=== PATIENT | male | born 1975 | race Two or more races ===

== ENCOUNTER 2017-04-21 22:09 | Emergency (ER) | payer MEDICAID, OTHER ==
[~2017-04-21] VITALS: Ht 170.2 cm; Wt 86.2 kg
[2017-04-21 22:14] VITALS: BP 150/107
== END 2017-04-22 04:20 | disposition home or self-care (01) ==
LOC: ER 22:09
DX: S91.311A Laceration without foreign body, right foot, initial encounter (principal); Z90.49 Acquired absence of other specified parts of digestive tract; W54.0XXA Bitten by dog, initial encounter; Y93.89 Activity, other specified; Y99.8 Other external cause status; Y92.89 Other specified places as the place of occurrence of the external cause
CPT/HCPCS: 12002

== ENCOUNTER 2017-05-03 17:31 | Emergency (ER) | payer OTHER ==
[~2017-05-03] VITALS: Ht 170.2 cm; Wt 86.2 kg
[2017-05-03 18:50] VITALS: BP 126/88
== END 2017-05-03 19:01 | disposition home or self-care (01) ==
LOC: ER 17:39
DX: S91.311D Laceration without foreign body, right foot, subsequent encounter (principal); Z48.02 Encounter for removal of sutures; Z90.49 Acquired absence of other specified parts of digestive tract

== ENCOUNTER 2020-06-25 08:54 | Emergency (ER) | payer OTHER ==
[~2020-06-25] VITALS: Ht 170.2 cm; Wt 93.0 kg
[2020-06-25 09:11] VITALS: BP 152/91
== END 2020-06-25 10:29 | disposition home or self-care (01) ==
LOC: ER 08:54
DX: S39.012A Strain of muscle, fascia and tendon of lower back, initial encounter (principal); R07.81 Pleurodynia; X58.XXXA Exposure to other specified factors, initial encounter; Y93.89 Activity, other specified; Y92.89 Other specified places as the place of occurrence of the external cause; Y99.8 Other external cause status
CPT/HCPCS: 71101

== ENCOUNTER 2020-08-07 10:00 | Emergency (ER) | payer OTHER ==
[~2020-08-07] VITALS: Ht 170.2 cm; Wt 93.0 kg
[2020-08-07] MEDS ORDERED: IBUPROFEN 800 MG TAB PO ONE (10:45)
[2020-08-07 11:47] VITALS: BP 142/97
== END 2020-08-07 12:52 | disposition home or self-care (01) ==
LOC: ER 10:00
DX: S92.421A Displaced fracture of distal phalanx of right great toe, initial encounter for closed fracture (principal); X58.XXXA Exposure to other specified factors, initial encounter; Y93.89 Activity, other specified; Y92.89 Other specified places as the place of occurrence of the external cause; Y99.8 Other external cause status
CPT/HCPCS: 73630

== ENCOUNTER 2023-10-30 06:31 | Emergency (ER) | payer MEDICAID, OTHER ==
[~2023-10-30] VITALS: Ht 170.2 cm; Wt 93.5 kg
[2023-10-30 07:40] VITALS: TEMP 98.3
[2023-10-30] MEDS: LORazepam 2MG/ML-1ML VIAL IM ONE (07:48)
[2023-10-30 07:52] VITALS: PULSE 72; RESP 16; O2SAT 98
[2023-10-30 08:56] VITALS: BP 145/93; PULSE 67; RESP 18; O2SAT 93
== END 2023-10-30 08:58 | disposition home or self-care (01) ==
LOC: ER 06:31
DX: I10 Essential (primary) hypertension (principal); Z98.890 Other specified postprocedural states
CPT/HCPCS: 96372; 99283; J2060

== ENCOUNTER 2024-02-13 07:08 | Inpatient (IN) | payer MEDICAID ==
[~2024-02-13] VITALS: Ht 167.6 cm; Wt 101.5 kg
[2024-02-13 07:39] LABS: Urine Bacteria None Seen /hpf (None Seen)
[2024-02-13 07:57] LABS: Urine Blood TRACE /uL (Negative); Urine Clarity Turbid (Clear); Urine Color Dark-Orange (Yellow); Urine Mucus FEW (None Seen); Urine Protein, UAD 1+ (Negative); Urine Specific Gravity 1.025 (1.001-1.035); Urine Urobilinogen 6 mg/dL (Negative); Urine WBC 6 /hpf (0 - 3)
--- NOTE | 2024-02-13 08:38 | DVH ---
XY CHEST TWO VIEWS ROUTINE CLINICAL HISTORY: epigastric pain COMPARISON: None TECHNIQUE: Frontal and lateral view of the chest was obtained FINDINGS: Lines and Tubes: None Lungs: No focal consolidation. Pleura: No effusion. No pneumothorax. Cardiomediastinal contours: Unremarkable Bones: No acute osseous abnormality. IMPRESSION: 1. No acute cardiopulmonary disease.
[2024-02-13] MEDS: SODIUM CHLORIDE 0.9% 1,000 ML IV ONE ×2 (08:43→19:10)
--- NOTE | 2024-02-13 08:43 | ED.PDOC ---
GI ASSESSMENT HPI Comments A 48 year old male presents to the ED with a chief complaint of abdominal pain onset 2 days. Patient states he began experiencing diffused abdominal 2 days ago, nausea, last bowel movement was 2 days ago. Patient noticed his eyes were turning yellow 2 days ago. Patient drink ETOH daily, last drink was yesterday. Denies any past medical history as well as fever, vomiting, diarrhea, chest pain, shortness of breath. No other symptoms or modifying factors present at this time. Chief Complaint: Abdominal Pain Time Seen by MD: 08:24 Primary Care Provider: LAURITA Reviewed Notes: Medications, Allergies Allergies: Coded Allergies: NO KNOWN ALLERGIES (Unverified , 06/22/14) Information Source: Patient Mode of Arrival: Ambulatory Timing: Days Duration: Since onset Prehospital treatment: None Severity: Moderate Recent: Ingestion of ETOH Pain Location: Diffuse Associated sign and symptoms: Nausea, Abdominal Pain Past Medical History PAST MEDICAL HISTORY: Denies Surgical History: Cholecystectomy Family History Family History: No family hx of DM Social History Smoker: Non-Smoker Alcohol: Heavy Drugs: Denies Drug Use Lives In: Home Constitutional: denies: chills, diaphoresis, fatigue, fever, malaise, sweats, weakness, others EENTM: denies: blurred vision, double vision, ear bleeding, ear discharge, ear drainage, ear pain, ear ringing, eye pain, eye redness, hearing loss, mouth pain, mouth swelling, nasal discharge, nose bleeding, nose congestion, nose pain, photophobia, tearing, throat pain, throat swelling, voice changes, others Respiratory: denies: cough, hemoptysis, orthopnea, SOB at rest, shortness of breath, SOB with excertion, stridor, wheezing, others Cardiovascular: denies: chest pain, dizzy spells, diaphoresis, Dyspnea on exertion, edema, irregular heart beat, left arm pain, lightheadedness, palpitations, PND, syncope, others Gastrointestinal: reports: abdominal pain, constipated, nausea; denies: abdomen distended, blood streaked bowels, diarrhea, dysphagia, difficulty swallowing, hematemesis, melena, poor appetite, poor fluid intake, rectal bleeding, rectal pain, vomiting, others Genitourinary: denies: burning, dysuria, flank pain, frequency, hematuria, incontinence, penile discharge, penile sore, pain, testicle pain, testicle swelling, urgency, others Neurological: denies: dizziness, fainting, headache, left sided numbness, left sided weakness, numbness, paresthesia, pre-existing deficit, right sided numbness, right sided weakness, seizure, speech problems, tingling, tremors, weakness, others Musculoskeletal: denies: back pain, gout, joint pain, joint swelling, muscle pain, muscle stiffness, neck pain, others Integumetry: denies: bruises, change in color, change in hair/nails, dryness, laceration, lesions, lumps, rash, wounds, others Hematologic/Lymphatic: denies: anemia, blood clots, easy bleeding, easy bruising, swollen glands, others Endocrine: denies: excessive hunger, excessive sweating, excessive thirst, excessive urination, flushing, intolerance to cold, intolerance to heat, unexplained weight gain, unexplained weight loss, others Psychiatric: denies: anxiety, bipolar disorder, depression, hopeless, panic disorder, schizophrenia, sleepless, suicidal, others All Other Systems: Reviewed and Negative Physical Exam General Appearance: No Apparent Distress, Normal HEENT: Normal ENT Inspection, Pharynx Normal, TMs Normal Neck: Full Range of Motion, Non-Tender, Normal, Normal Inspection Respiratory: Chest Non-Tender, Lungs Clear, No Accessory Muscle Use, No Respiratory Distress, Normal Breath Sounds Cardiovascular: No Edema, No JVD, No Murmur, No Gallop, Normal Peripheral Pulses, Regular Rate/Rhythm Breast Exam: Deferred Gastrointestinal: Diffuse, No Organomegaly, No Pulsatile Mass, Tenderness Genitalia: Deferred Pelvic: Deferred Rectal: Deferred Extremities: No calf tenderness, Normal capillary refill, Normal inspection, Normal range of motion, Non-tender, No pedal edema Musculoskeletal : Apperance: Normal Neurologic: Alert, electroless plater II-XII nml as Tested, No Motor Deficits, Normal Affect, Normal Mood, No Sensory Deficits Cerebellar Function: Normal Reflexes: Normal Skin: Jaundice, Warm Lymphatic: No Adenopathy Was a procedure done? Was a procedure done?: No GI differential Dx Differential Diagnosis: Cholangitis, Cholecystitis, Gastritis/PUD, Gastroenteritis, Pancreatitis, UTI, Dehydration, Electrolyte Imbalance, Viral, Malnutrition X-Ray, Labs, Meds, VS Vital Signs Date Time Temp Pulse Resp B/P (MAP) Pulse Ox O2 Delivery O2 Flow Rate FiO2 02/13/24 15:37 98.7 101 20 101/54 (70) 94 98.7 02/13/24 13:28 99.0 115 19 101/59 (73) 94 99.0 02/13/24 12:00 101 16 98/57 (71) 94 02/13/24 10:30 106 18 93 Room Air* 0 21 02/13/24 10:30 119/72 (88) 93 02/13/24 08:47 115 20 94 Room Air 02/13/24 08:47 99.1 115 20 129/71 (90) 94 99.1 02/13/24 07:34 98.8 110 19 112/76 (88) 95 Lab Test 02/13/24 11:10 02/13/24 09:11 02/13/24 07:27 Range/Units Lactic Acid Level 1.9 2.3 *H 0.4-2.0 mmol/L White Blood Count 8.1 4.4-10.8 10^3/uL Red Blood Count 3.94 L 4.5-5.90 10^6/uL Hemoglobin 12.8 L 13.5-17.5 g/dL Hematocrit 39.2 L 41.0-53.0 % Mean Corpuscular Volume 99.6 80.0-100.0 fL Mean Corpuscular Hemoglobin 32.6 H 28.0-32.0 pg Mean Corpuscular Hemoglobin Concent 32.7 32.0-36.0 g/dL Red Cell Distribution Width 18.7 H 11.8-14.3 % Platelet Count 136 L 140-450 10^3/uL Mean Platelet Volume 9.2 6.9-10.8 fL Neutrophils (%) (Auto) 80.3 H 37.0-80.0 % Lymphocytes (%) (Auto) 10.6 10.0-50.0 % Monocytes (%) (Auto) 8.3 0.0-12.0 % Eosinophils (%) (Auto) 0.3 0.0-7.0 % Basophils (%) (Auto) 0.5 0.0-2.0 % Neutrophils # (Auto) 6.5 1.6-8.6 10 ^3/uL Lymphocytes # (Auto) 0.9 0.4-5.4 10 ^3/uL Monocytes # (Auto) 0.7 0-1.3 10 ^3/uL Eosinophils # (Auto) 0 0-0.8 10 ^3/uL Basophils # (Auto) 0 0-0.2 10 ^3/uL Nucleated Red Blood Cells 0.1 % Sodium Level 127 L 136-145 mmol/L Potassium Level 3.8 3.5-5.1 mmol/L Chloride Level 94 L 98-107 mmol/L Carbon Dioxide Level 20 20-31 mmol/L Anion Gap 13 5-15 Blood Urea Nitrogen 7 L 9-23 mg/dL Creatinine 0.67 L 0.700-1.30 mg/dL Glomerular Filtration Rate Calc 116 >90 mL/min BUN/Creatinine Ratio 10.4 10.0-20.0 Serum Glucose 117 H 74-106 mg/dL Calcium Level 8.3 L 8.7-10.4 mg/dL Total Bilirubin 16.2 H 0.2-1.0 mg/dL Aspartate Amino Transferase (AST) 150 H 13-40 U/L Alanine Aminotransferase (ALT) 46 H 7-40 U/L Alkaline Phosphatase 165 H 46-116 U/L Total Protein 7.9 5.7-8.2 g/dL Albumin 3.2 3.2-4.8 g/dL Lipase 261 H 12-53 U/L Plasma/Serum Blood Alcohol < 3.0 <10 mg/dL Urine Color Dark-orange Yellow Urine Clarity Turbid H Clear Urine pH 6.0 5.0-9.0 Urine Specific [place] 1.025 1.001-1.035 Urine Protein 1+ H Negative Urine Ketones Negative Negative Urine Blood Trace H Negative /uL Urine Nitrite Negative Negative Urine Bilirubin 4+ Negative Urine Urobilinogen 6 Negative mg/dL Urine Leukocyte Esterase Negative Negative /uL Urine RBC <1 0 - 3 /hpf Urine WBC 6 0 - 3 /hpf Urine Squamous Epithelial Cells Few <5 /hpf Urine Bacteria None seen None Seen /hpf Urine Mucus Few None Seen Urine Glucose Trace Normal mg/dL Current Medications Medications (Trade) Dose Ordered Sig/Mikhail Route Start Time Stop Time Status Last Admin Sodium Chloride 1,000 ml @ 1,000 mls/hr Q1H ONCE IV 02/13/24 08:15 02/13/24 09:14 DC 02/13/24 08:43 Ondansetron HCl (Zofran) 4 mg ONCE ONCE IV 02/13/24 08:15 02/13/24 08:16 DC 02/13/24 09:14 Pantoprazole Sodium (Protonix) 40 mg ONCE ONCE IV 02/13/24 08:15 02/13/24 08:16 DC 02/13/24 09:[address] [address] Ph: [phone] DIAGNOSTIC IMAGING Diagnostic Imaging Report : [id number] Signed PATIENT: [facility] ACCT: [id number] UNIT: [id number] : 1975 LOC: ER ROOM / BED: / AGE / SEX: 48 / M ADM STATUS: REG ER SERVICE 2 ORDERING PHYSICIAN: DANA TORRES MD PROCEDURE(s): CXR2 - CHEST TWO VIEWS ROUTINE REASON: epigastric pain ORDER NUMBER(s): [id number], ACCESSION NUMBER(s): [id number] XY CHEST TWO VIEWS ROUTINE CLINICAL HISTORY: epigastric pain COMPARISON: None TECHNIQUE: Frontal and lateral view of the chest was obtained FINDINGS: Lines and Tubes: None Lungs: No focal consolidation. Pleura: No effusion. No pneumothorax. Cardiomediastinal contours: Unremarkable Bones: No acute osseous abnormality. IMPRESSION: 1. No acute cardiopulmonary disease. ATED BY: BRET MOONEY MD DICTATED DATE/TIME: 02/13/24834 SIGNED BY: BRET MOONEY MD SIGNED DATE/TIME: 02/13/24834 CC: Time of 1ST Reevaluation: 08:54 Reevaluation 1ST: Unchanged Patient Education/Counseling: Diagnosis, Treatment, Prognosis Family Education/Counseling: No Family Present Additional Information MI DATA VOL/COMPLEXITY:>2 External Notes- Ordered Test- LAB, PHA, XY Reviewed Results: UA, CBC, CMP, Lipase, LA w/ reflex, Blood Alcohol Independent Hx- no Interpreted Results-(XY) Discuss Tx/Results- medical personnel, pt Departure 1 Departure Time of Disposition: 17:15 (Patient presented with abdominal pain that was concerning for possible appendicits, gastritis, cholecystitis, colitis, gastroenteritis, sbo, or orther possible surgical emergency. Data: 1. I ordered and reviewed the result of at least 3 labs including a CBC, BMP, and Urinalysis. 2. I independently interpreted the following tests: CT Abdoment and Pelvis is concerning for ascites .Risk:This patient has a high risk of morbidity due to further diagnostic testing or treatment and may suffer from an acute abdominal process disorder. Workup reveals hyperbilirubinemia and worsening abdominal pain and patient should be admitted for further workup. and possible expert consultation. ) Impression: Primary Impression: Hyperbilirubinemia Additional Impressions: Abdominal pain Qualified Codes: R10.84 - Generalized abdominal pain Weakness Jaundice Disposition: ADMITTED INPATIENT Admit to: Med Surg Condition: Guarded Critical Care Note Critical Care Time?: No Stability Stability form required: No I personally scribed for DANA TORRES MD ([email or web address]) on 02/13/24 at 08:43. Electronically submitted by Vicky Duff ([email or web address]). I personally scribed for DANA TORRES MD ([email or web address]) on 02/13/24 at 09:06. Electronically submitted by Vicky Duff ([email or web address]). I personally scribed for DANA TORRES MD ([email or web address]) on 02/13/24 at 10:36. Electronically submitted by Vicky Duff ([email or web address]). I personally scribed for DANA TORRES MD ([email or web address]) on 02/13/24 at 10:41. Electronically submitted by Vicky Duff ([email or web address]). I personally scribed for DANA TORRES MD ([email or web address]) on 02/13/24 at 13:00. Electronically submitted by Bonnie Kim ([facility]). DANA TORRES MD Feb 13, 2024 08:43
[2024-02-13] MEDS: PANTOPRAZOLE 40 MG/10 ML VIAL INJ IV ONE (09:13)
[2024-02-13] MEDS: ONDANSETRON HCL 4 MG/2 ML VIAL IV ONE (09:14)
[2024-02-13 09:26] LABS: Basophils # (auto) 0 10 ^3/uL (0-0.2); Basophils % (auto) 0.5 % (0.0-2.0); Eosinophils # (auto) 0 10 ^3/uL (0-0.8); Eosinophils % (auto) 0.3 % (0.0-7.0); Hematocrit 39.2 % (41.0-53.0); Hemoglobin 12.8 g/dL (13.5-17.5); Lymphocytes # (auto) 0.9 10 ^3/uL (0.4-5.4); Lymphocytes % (auto) 10.6 % (10.0-50.0); Mean Corpuscular Hemoglobin 32.6 pg (28.0-32.0); Mean Corpuscular Hgb Conc. 32.7 g/dL (32.0-36.0); Mean Corpuscular Volume 99.6 fL (80.0-100.0); Monocytes # (auto) 0.7 10 ^3/uL (0-1.3); Monocytes % (auto) 8.3 % (0.0-12.0); Neutrophils # (auto) 6.5 10 ^3/uL (1.6-8.6); Neutrophils % (auto) 80.3 % (37.0-80.0); Nucleated Red Blood Cells % 0.1 %; Platelet Count (auto) 136 10^3/uL (140-450); Red Blood Cells 3.94 10^6/uL (4.5-5.90); Red Cell Distribution Width 18.7 % (11.8-14.3); White Blood Cell 8.1 10^3/uL (4.4-10.8)
[2024-02-13 09:40] LABS: Albumin 3.2 g/dL (3.2-4.8); Anion Gap 13 (5-15); Carbon Dioxide 20 mmol/L (20-31); Potassium 3.8 mmol/L (3.5-5.1); Total Protein 7.9 g/dL (5.7-8.2)
[2024-02-13 09:44] LABS: Alanine Aminotransferase 46 U/L (7-40); Alkaline Phosphatase 165 U/L (46-116); Aspartate Aminotransferase 150 U/L (13-40); Blood Alcohol < 3.0 mg/dL (<10); Blood Urea Nitrogen 7 mg/dL (9-23); Calcium 8.3 mg/dL (8.7-10.4); Chloride 94 mmol/L (98-107); Glucose 117 mg/dL (74-106); Sodium 127 mmol/L (136-145)
[2024-02-13 09:45] LABS: Bilirubin, Total 16.2 mg/dL (0.2-1.0)
[2024-02-13 10:20] LABS: BUN/Creatinine Ratio 10.4 (10.0-20.0)
[2024-02-13 10:23] LABS: Lactic Acid w/Reflex 2.3 mmol/L (0.4-2.0)
[2024-02-13 10:30] VITALS: PULSE 106; RESP 18; O2SAT 93
[2024-02-13 10:54] LABS: Lipase 261 U/L (12-53)
[2024-02-13] MEDS: IOHEXOL 300 MG/ML 100ML BOTTLE IJ ONE ×2 (14:02→16:43)
--- NOTE | 2024-02-13 17:06 | DVH ---
Exam: CT CT AB PEL WITH IV CON ONLY History: hyperbilirubinemia Comparison Study: None available at time of dictation. Contrast: Type of contrast: Omnipaque 300 Contrast injected: 100 mL Contrast wasted: 0 TECHNIQUE: A digital piston maker image was obtained. During the uneventful, intravenous administration of c ontrast material, multislice data acquisition was obtained through the abdomen and pelvis. The data s et was subsequently reconstructed into axial images. Images were reviewed on a work station using a c ombination of axial and multiplanar using a variety of window levels and settings. Radiation Dose Information: CT Dose: CTDI volume is 22.69 mGy. Dose-length product is 1317.28 mGy*cm FINDINGS: Lung Bases: No acute or significant lung base finding. Normal heart size. No pleural or pericardial effusion. Liver: The liver is normal in size. No focal lesions. Normal hepatic vascular enhancement. No signif icantly dilated intrahepatic ducts. Gallbladder and Biliary Tree: Gallbladder has been surgically removed. Spleen: Unremarkable Pancreas: The pancreas is normal in appearance without focal lesions or abnormal enhancement. Adrenal Glands: Unremarkable Kidneys: Kidneys demonstrate normal symmetric enhancement without focal lesions, calculi or hydroneph rosis. Bladder: Unremarkable Bowel: The stomach is grossly normal in appearance. Small bowel and colon are normal in caliber and d istribution. The appendix is not visualized; however, no secondary findings of acute appendicitis id entified. Ascites: Trace of ascites around the liver and a small amount in the pelvis and right pericolic gutte r. Lymphadenopathy: No mesenteric, retroperitoneal or periportal lymphadenopathy. Abdominal Wall and Mesentery: Unremarkable. Vasculature: The visualized abdominal aorta is normal in size and caliber. Abdominal and pelvic vess els demonstrate normal enhancement. Pelvic Organs: Unremarkable Musculoskeletal: No aggressive focal bony lesions, acute fractures or dislocation. Soft tissues: Unremarkable. IMPRESSION: 1. Small amount of ascites around the liver right pericolic gutter and pelvis. 2. Patient is status post cholecystectomy. 3. There are no dilated intrahepatic ducts. All CT scans at this medical facility are performed using dose modulation techniques as appropriate t o a performed exam including the following: Automated exposure control was utilized; adjustment of th e MA and/or KV according to patient size; and use of iterative reconstruction technique.
[2024-02-13] MEDS: LORazepam 2MG/ML-1ML VIAL IV SCH ×2 (18:00)
[2024-02-13] MEDS ORDERED: HYDROcodone-ACET 5/325MG TAB PO PRN (18:00)
[2024-02-13] MEDS ORDERED: ONDANSETRON HCL 4 MG/2 ML VIAL IV PRN (18:00)
[2024-02-13] MEDS ORDERED: DEXTROSE (50%) 50ML SYRG IV PRN (18:00)
[2024-02-13] MEDS ORDERED: MORPHINE SULFATE INJ 2 MG/ml SYRG IV PRN (18:00)
[2024-02-13] MEDS ORDERED: MAALOX PLUS or MAALOX 30 ML PO PRN (18:00)
[2024-02-13] MEDS ORDERED: TEMAZEPAM 15 MG CAP PO PRN (18:00)
--- NOTE | 2024-02-13 18:29 | DVHHP2 ---
History of Present Illness Reason for Visit: abdominal pain History of Present Illness 48-year-old obese alcoholic patient comes in the ED with complaints of abdominal pain patient has a longstanding history of drinking patient states that he drinks on a daily basis for the last 2 days he has been having some abdominal pain the pain was associated with some nausea patient denies having chest pain diarrhea vomiting however was very concerned about having changes in skin color patient stating that he was turning yellow and was slightly concerned and came to the ED for further evaluation on evaluation in the patient was recommended for admission and continued management and possible evaluation for alcohol w ithdrawal Cardiovascular: hyperipidemia ALCOHOL: heavy Review of Systems Constitutional: Yes: Weakness; No: Fever, Chills, Sweats, Malaise, Other Eyes: No: Pain, Vision change, Conjunctivae inflammation, Eyelid inflammation, Other, Redness ENT: No: Ear pain, Ear discharge, Nose pain, Nose discharge, Nose congestion, Mouth pain, Mouth swelling, Throat pain, Throat swelling, Other Respiratory: No: Cough, Dry, Shortness of breath, SOB with excertion, Wheezing, Hemoptysis, Pleuritic Pain, Sputum, Wheezing, Other Cardiovascular: No: Chest Pain, Palpitations, Orthopnea, Paroxysmal Noc. Dyspnea, Edema, Lt Headedness, Other Gastrointestinal: Nausea, Abdominal Pain; No: Vomiting, Diarrhea, Constipation, Melena, Hematochezia, Other Genitourinary: No Dysuria, No Frequency, No Incontinence, No Hematuria, No Retention, No Other Musculoskeletal: No: other, neck pain, shoulder pain, arm pain, back pain, hand pain, leg pain, foot pain Skin: No: Rash, Lesions, Jaundice, Bruising, Other Neurological: No: Weakness, Numbness, Incoordination, Change in speech, Confusion, Seizures, Other Allergies: Coded Allergies: NO KNOWN ALLERGIES (Unverified , 06/22/14) Exam Vital Signs Vital Signs Date Time Temp Pulse Resp B/P (MAP) Pulse Ox O2 Delivery O2 Flow Rate FiO2 02/13/24 15:37 98.7 101 20 101/54 (70) 94 98.7 02/13/24 10:30 Room Air* 0 21 General Appearance: Alert, Oriented X3, moderate distress HEENT: PERRLA Respiratory: Clear to auscultation Cardiovascular: Regular rate, Normal S1, Normal S2 Abdominal: Normal bowel sounds, Soft, No tenderness Extremities: No clubbing, No cyanosis Skin: No rashes, No breakdown, No significant lesion Neuro: Normal gait, Normal speech Psych/Mental Status: Mood NL Labs/Xrays Labs Test 02/13/24 11:10 02/13/24 09:11 02/13/24 07:27 Range/Units Lactic Acid Level 1.9 0.4-2.0 mmol/L White Blood Count 8.1 4.4-10.8 10^3/uL Red Blood Count 3.94 L 4.5-5.90 10^6/uL Hemoglobin 12.8 L 13.5-17.5 g/dL Hematocrit 39.2 L 41.0-53.0 % Mean Corpuscular Volume 99.6 80.0-100.0 fL Mean Corpuscular Hemoglobin 32.6 H 28.0-32.0 pg Mean Corpuscular Hemoglobin Concent 32.7 32.0-36.0 g/dL Red Cell Distribution Width 18.7 H 11.8-14.3 % Platelet Count 136 L 140-450 10^3/uL Mean Platelet Volume 9.2 6.9-10.8 fL Neutrophils (%) (Auto) 80.3 H 37.0-80.0 % Lymphocytes (%) (Auto) 10.6 10.0-50.0 % Monocytes (%) (Auto) 8.3 0.0-12.0 % Eosinophils (%) (Auto) 0.3 0.0-7.0 % Basophils (%) (Auto) 0.5 0.0-2.0 % Neutrophils # (Auto) 6.5 1.6-8.6 10 ^3/uL Lymphocytes # (Auto) 0.9 0.4-5.4 10 ^3/uL Monocytes # (Auto) 0.7 0-1.3 10 ^3/uL Eosinophils # (Auto) 0 0-0.8 10 ^3/uL Basophils # (Auto) 0 0-0.2 10 ^3/uL Nucleated Red Blood Cells 0.1 % Sodium Level 127 L 136-145 mmol/L Potassium Level 3.8 3.5-5.1 mmol/L Chloride Level 94 L 98-107 mmol/L Carbon Dioxide Level 20 20-31 mmol/L Anion Gap 13 5-15 Blood Urea Nitrogen 7 L 9-23 mg/dL Creatinine 0.67 L 0.700-1.30 mg/dL Glomerular Filtration Rate Calc 116 >90 mL/min BUN/Creatinine Ratio 10.4 10.0-20.0 Serum Glucose 117 H 74-106 mg/dL Calcium Level 8.3 L 8.7-10.4 mg/dL Total Bilirubin 16.2 H 0.2-1.0 mg/dL Aspartate Amino Transferase (AST) 150 H 13-40 U/L Alanine Aminotransferase (ALT) 46 H 7-40 U/L Alkaline Phosphatase 165 H 46-116 U/L Total Protein 7.9 5.7-8.2 g/dL Albumin 3.2 3.2-4.8 g/dL Lipase 261 H 12-53 U/L Plasma/Serum Blood Alcohol < 3.0 <10 mg/dL Urine Color Dark-orange Yellow Urine Clarity Turbid H Clear Urine pH 6.0 5.0-9.0 Urine Specific [place] 1.025 1.001-1.035 Urine Protein 1+ H Negative Urine Ketones Negative Negative Urine Blood Trace H Negative /uL Urine Nitrite Negative Negative Urine Bilirubin 4+ Negative Urine Urobilinogen 6 Negative mg/dL Urine Leukocyte Esterase Negative Negative /uL Urine RBC <1 0 - 3 /hpf Urine WBC 6 0 - 3 /hpf Urine Squamous Epithelial Cells Few <5 /hpf Urine Bacteria None seen None Seen /hpf Urine Mucus Few None Seen Urine Glucose Trace Normal mg/dL Assessment/Plan Assessment/Plan Admit to [facility] Patient with abdominal pain History of acute alcohol intoxication Possible cause for hyperbilirubinemia Include gastroenteritis pancreatitis cholangitis and cholecystitis Patient at this time is afebrile IV hydration Monitor for signs of acute infection We will preemptively treat with IV antibiotics Flagyl for suspected cholangitis CIWA protocol just in case as patient is a daily drinker Possible need for GI evaluation this is at the discretion of inpatient physician Plan discussed with: Patient My Orders Orders - ROSANGELA CHARLES MD Procedure Category Date Status Time Glucose Blood PHA 02/13/24 In Process (Accu-Chek Comfort 20:00 Insulin R (Human) PHA 02/13/24 In Process (Insulin R) 20:00 Dextrose 50% Syringe PHA 02/13/24 In Process 18:00 Ammonia LAB 02/13/24 Logged 17:48 Pantoprazole PHA 02/14/24 In Process (Protonix) 06:30 Admit ADMIT 02/13/24 Transmitted 17:48 Code Status CODE 02/13/24 Transmitted 17:48 Vital Signs ISHAAN 02/13/24 In Process 17:48 Review Orders With ISHAAN 02/13/24 In Process Adm.Md 17:48 Regular Diet DIET 02/13/24 Transmitted Dinner Sodium Chloride 0.9% PHA 02/13/24 In Process 18:00 Lorazepam Tablet PHA 02/13/24 In Process (Ativan Tablet) 18:00 Alum & Mag PHA 02/13/24 In Process Hydrox-Simethicone 18:00 Docusate Sodium PHA 02/13/24 In Process Capsule (Colace 18:00 Temazepam (Restoril) PHA 02/13/24 In Process 18:00 Notify Of Changes ISHAAN 02/13/24 In Process From Base 17:48 Advance Directive ISHAAN 02/13/24 In Process 17:48 Basic Metabolic Panel LAB 02/14/24 Verified 04:00 Complete Blood Count LAB 02/14/24 Verified 04:00 Patient Condition ORDERS 02/13/24 Transmitted 17:48 Allergies ISHAAN 02/13/24 In Process 17:48 Hydrocodone-Acet PHA 02/13/24 In Process 5/325mg Tab ([place] 18:00 Ondansetron Hcl PHA 02/13/24 In Process (Zofran) 18:00 Morphine Sulfate PHA 02/13/24 In Process Injection 18:00 Notify Of Changes ISHAAN 02/13/24 In Process From Base 17:48 Mixing Machine Tender Cork Gasket For ISHAAN 02/13/24 In Process 24 Hours 17:48 Oxygen By Nasal RT 02/13/24 Transmitted Cannula 17:48 Chlordiazepoxide Hcl PHA 02/14/24 In Process Capsule (Librium Ca 10:00 Sodium Chloride 0.9% PHA 02/13/24 In Process 18:00 Thiamine Tab PHA 02/14/24 In Process 10:00 Folic Acid Tablet PHA 02/14/24 In Process 10:00 Multiple Vitamin PHA 02/14/24 In Process Tablet (Mvi Tab) 10:00 Lorazepam 2mg/Ml Inj PHA 02/13/24 In Process (Ativan Inj) 18:00 Lorazepam 2mg/Ml Inj PHA 02/13/24 In Process (Ativan Inj) 18:00 Etoh Withdrawal ISHAAN 02/13/24 In Process Assessment 17:48 Etoh Withdrawal ISHAAN 02/13/24 In Process Assessment 17:48 Metronidazole PHA 02/13/24 Logged 500mg/100ml (Flagyl 18:15 Problem List: (1) Abdominal pain (2) Weakness (3) Jaundice (4) Hyperbilirubinemia (5) HTN (hypertension) Date of Service: Feb 13, 2024 Billing Provider: ROSANGELA CHARLES MD Common Visit Codes: [id number] INP/OBS CARE (HIGH) ROSANGELA CHARLES MD Feb 13, 2024 18:29
[2024-02-13] MEDS: MULTIPLE VITAMIN TAB PO ONE (19:09)
[2024-02-13] MEDS: FOLIC ACID 1 MG TAB PO ONE (19:09)
[2024-02-13] MEDS: THIAMINE HCL 100 MG TAB PO ONE (19:09)
[2024-02-13] MEDS: SODIUM CHLORIDE 0.9% 1,000 ML IV SCH (19:10)
[2024-02-13] MEDS: metroNIDAZOLE 500MG/100ML 100 ML IV SCH (19:24)
[2024-02-13] MEDS: ACCU-CHEK COMFORT CURVE STRIP VI SCH (19:46)
[2024-02-13] MEDS: InsuLIN REG 1unit/0.01ml Soln (100units/ml) SC SCH (19:47)
[2024-02-13 23:13] VITALS: BP 117/68; PULSE 101; PULSE 102; RESP 21; TEMP 98.4; O2SAT 95
[2024-02-14 01:00] VITALS: BP 104/59; PULSE 97; RESP 18; TEMP 98; O2SAT 91
[2024-02-14 05:00] VITALS: BP 103/58; PULSE 101; RESP 18; TEMP 97.5; O2SAT 90
[2024-02-14 05:49] LABS: Basophils # (auto) 0.1 10 ^3/uL (0-0.2); Basophils % (auto) 0.9 % (0.0-2.0); Eosinophils # (auto) 0 10 ^3/uL (0-0.8); Eosinophils % (auto) 0.4 % (0.0-7.0); Hematocrit 36.1 % (41.0-53.0); Hemoglobin 12.2 g/dL (13.5-17.5); Lymphocytes % (auto) 14.8 % (10.0-50.0); Mean Corpuscular Hemoglobin 33.5 pg (28.0-32.0); Mean Corpuscular Hgb Conc. 33.9 g/dL (32.0-36.0); Mean Corpuscular Volume 98.8 fL (80.0-100.0); Monocytes # (auto) 0.6 10 ^3/uL (0-1.3); Monocytes % (auto) 8.3 % (0.0-12.0); Neutrophils # (auto) 5.1 10 ^3/uL (1.6-8.6); Neutrophils % (auto) 75.6 % (37.0-80.0); Nucleated Red Blood Cells % 0.1 %; Platelet Count (auto) 138 10^3/uL (140-450); Red Blood Cells 3.65 10^6/uL (4.5-5.90); Red Cell Distribution Width 18.3 % (11.8-14.3); White Blood Cell 6.7 10^3/uL (4.4-10.8)
[2024-02-14 05:54] LABS: Potassium 3.6 mmol/L (3.5-5.1)
[2024-02-14 05:55] LABS: Anion Gap 11 (5-15); Carbon Dioxide 21 mmol/L (20-31)
[2024-02-14 05:57] LABS: Calcium 8.2 mg/dL (8.7-10.4); Chloride 98 mmol/L (98-107); Sodium 130 mmol/L (136-145)
[2024-02-14 06:00] LABS: Blood Urea Nitrogen 10 mg/dL (9-23); Glucose 95 mg/dL (74-106)
[2024-02-14 06:07] LABS: BUN/Creatinine Ratio 15.4 (10.0-20.0)
[2024-02-14] MEDS: PANTOPRAZOLE 40 MG/10 ML VIAL INJ IV SCH (06:28)
[2024-02-14 08:44] VITALS: BP 107/68; PULSE 109; RESP 18; TEMP 98.1; O2SAT 93
[2024-02-14] MEDS: THIAMINE HCL 100 MG TAB PO SCH (10:22)
[2024-02-14] MEDS: FOLIC ACID 1 MG TAB PO SCH (10:22)
[2024-02-14] MEDS: chlordiazePOXIDE HCL 25 MG CAP PO SCH (10:22)
[2024-02-14] MEDS: DOCUSATE SOD 100 MG CAP PO PRN (10:23)
[2024-02-14] MEDS: MULTIPLE VITAMIN TAB PO SCH (10:23)
[2024-02-14 13:00] VITALS: BP 117/77; PULSE 114; RESP 18; TEMP 97.8; O2SAT 92
--- NOTE | 2024-02-14 13:45 | DVHPN2 ---
Reviewed: Care Plan, H&P, Labs, Medications, Previous Orders, Radiology Changes from previous H/P or p: No Changes Eyes: No Pain, No Vision change, No Conjunctivae inflammation, No Eyelid inflammation, No Other, No Redness ENT: No Ear pain, No Ear discharge, No Nose pain, No Nose discharge, No Nose congestion, No Mouth pain, No Mouth swelling, No Throat pain, No Throat swelling, No Other Cardiovascular: No Chest Pain, No Palpitations, No Orthopnea, No Paroxysmal Noc. Dyspnea, No Edema, No Lt Headedness, No Other Respiratory: No Cough, No Dry, No Shortness of breath, No SOB with excertion, No Wheezing, No Hemoptysis, No Pleuritic Pain, No Sputum, No Other Gastrointestinal: Nausea; No Vomiting; Abdominal Pain; No Diarrhea, No Constipation, No Melena, No Hematochezia, No Other Genitourinary: No Dysuria, No Frequency, No Incontinence, No Hematuria, No Retention, No Other Musculoskeletal: No other, No neck pain, No shoulder pain, No arm pain, No back pain, No hand pain, No leg pain, No foot pain Skin: No Rash, No Lesions, No Jaundice, No Bruising, No Other Objective Vitals Vital Signs Date Time Temp Pulse Resp B/P (MAP) Pulse Ox O2 Delivery O2 Flow Rate FiO2 02/14/24 09:56 Room Air* 0 21 02/14/24 08:44 98.1 109 18 107/68 (81) 93 98.1 Intake/Output Intake and Output 02/14/24 07:00 Intake Total 100 ml Balance 100 ml Intake Oral 0 ml IV Total 100 ml # Voids 1 Medications Current Medications Medications Dose Ordered Sig/Mikhail Route Start Time Stop Time Status Last Admin Dose Admin Diagnostic Test (Pha) 1 strip IQ4HR 02/13/24 20:00 02/14/24 08:00 1 STRIP Insulin Human Regular IQ4HR SC 02/13/24 20:00 Dextrose 50 ml UD PRN IV 02/13/24 18:00 Pantoprazole Sodium 40 mg DAILY@0630 IV 02/14/24 06:30 02/14/24 06:28 40 MG Sodium Chloride 1,000 ml @ 60 mls/hr [id number] IV 02/13/24 18:00 02/13/24 19:10 60 MLS/HR Lorazepam 0.5 mg Q6HP PRN PO 02/13/24 18:00 Al Hydrox/Mg Hydrox/Simethicone 30 ml Q6HP PRN PO 02/13/24 18:00 Docusate Sodium 100 mg BIDPRN PRN PO 02/13/24 18:00 02/14/24 10:23 100 MG Temazepam 15 mg QHSP PRN PO 02/13/24 18:00 Acetaminophen/ Hydrocodone Bitart 1 tab Q4HP PRN PO 02/13/24 18:00 Ondansetron HCl 4 mg Q4HP PRN IV 02/13/24 18:00 Morphine Sulfate 2 mg Q4HPRN PRN IV 02/13/24 18:00 Chlordiazepoxide HCl 25 mg DAILY PO 02/14/24 10:00 02/14/24 10:22 25 MG Thiamine HCl 100 mg DAILY PO 02/14/24 10:00 02/14/24 10:22 100 MG Folic Acid 1 mg DAILY PO 02/14/24 10:00 02/14/24 10:22 1 MG Multivitamins 1 tab DAILY PO 02/14/24 10:00 02/14/24 10:23 1 TAB Lorazepam 1 mg Q4H IV 02/13/24 18:00 02/14/24 10:22 1 MG Lorazepam 1 mg Q6H IV 02/13/24 18:00 Hold Metronidazole 100 ml @ 100 mls/hr Q6HR IV 02/13/24 18:15 02/14/24 06:23 100 MLS/HR Laboratory Results Laboratory Tests 02/14/24 05:18 Chemistry Test 02/14/24 05:18 Calcium Level 8.2 mg/dL (8.7-10.4) L Urinalysis Test 02/13/24 07:27 Urine Color Dark-orange (Yellow) Urine Clarity Turbid (Clear) H Urine pH 6.0 (5.0-9.0) Urine Specific [place] 1.025 (1.001-1.035) Urine Protein 1+ (Negative) H Urine Ketones Negative (Negative) Urine Blood Trace /uL (Negative) H Urine Nitrite Negative (Negative) Urine Bilirubin 4+ (Negative) Urine Urobilinogen 6 mg/dL (Negative) Urine Leukocyte Esterase Negative /uL (Negative) Urine RBC <1 /hpf (0 - 3) Urine WBC 6 /hpf (0 - 3) Urine Squamous Epithelial Cells Few /hpf (<5) Urine Bacteria None seen /hpf (None Seen) Urine Mucus Few (None Seen) Urine Glucose Trace mg/dL (Normal) Labs and/or images reviewed: Labs reviewed by me, Image(s) reviewed by me Assessment/Plan Assessment/Plan Acute generalized weakness Hyponatremia sodium 127 Acute lactic acidosis lactic acid 2.3 Jaundice bilirubin 16.2, consult for GI Dr. Erlin Wang Elevated liver function tests Chronic current alcohol abuse: Counseling thiamine folic acid multivitamin Alcohol withdrawal: Librium Time spent 50 minutes Plan discussed with: Patient My Orders Orders - MIR JONES MD Procedure Category Date Status Time * Gi Dvh Decating Machine Operator CONS 02/14/24 Transmitted 13:38 Date of Service: Feb 14, 2024 Billing Provider: MIR JONES MD Common Visit Codes: [id number] INP/OBS CARE(HIGH) MIR JONES MD Feb 14, 2024 13:45
--- NOTE | 2024-02-14 17:40 | PRN ---
Misceleneous Note Note Note 02/14/2024 Referring provider: Kamran Reason for consultation: Jaundice HPI: The patient is a 48-year-old male with no significant past medical history, surgical history of cholecystectomy, admitted with complaints of abdominal distention and discomfort, jaundice, decreased energy, and generalized fatigue over the last few weeks. Patient drinks significantly, admits to 2-3 tall cans of beer daily for at least last five months, and two tall cans a day for years prior to that. He denies family history of gastrointestinal disease or liver disease. Patient denies marijuana use or other recreational drug use, tobacco use, or use of any medications. Patient began noticing increased abdominal swelling over the last few weeks and jaundice over the last few days. His last EtOH take was . Patient denies any fevers or chills although he has had chills in the recent past. He denies any cough, wheeze, shortness of breath, chest pain, palpitations, dysuria, hematuria, arthralgias, myalgias, endocrine abnormalities, musculoskeletal complaints, history of stroke or seizure, headaches or dizziness. GI consultation was obtained for evaluation Past Medical History Denies Family History No gastrointestinal diseases or malignancies Social History As above Current Medications Medications (Trade) Dose Ordered Sig/Mikhail Route Start Time Stop Time Status Last Admin Dose Admin Diagnostic Test (Pha) (Accu-Chek Comfort Curve T) 1 strip IQ4HR 02/13/24 20:00 02/14/24 17:03 1 STRIP Insulin Human Regular (InsuLIN R) IQ4HR SC 02/13/24 20:00 Dextrose 50 ml UD PRN IV 02/13/24 18:00 Pantoprazole Sodium (Protonix) 40 mg DAILY@0630 IV 02/14/24 06:30 02/14/24 06:28 40 MG Sodium Chloride 1,000 ml @ 60 mls/hr [id number] IV 02/13/24 18:00 02/13/24 19:10 60 MLS/HR Lorazepam (Ativan Tablet) 0.5 mg Q6HP PRN PO 02/13/24 18:00 Al Hydrox/Mg Hydrox/Simethicone (Maalox Plus) 30 ml Q6HP PRN PO 02/13/24 18:00 Docusate Sodium (Colace Capsule) 100 mg BIDPRN PRN PO 02/13/24 18:00 02/14/24 10:23 100 MG Temazepam (Restoril) 15 mg QHSP PRN PO 02/13/24 18:00 Acetaminophen/ Hydrocodone Bitart ([place] 5/325MG Tab) 1 tab Q4HP PRN PO 02/13/24 18:00 Ondansetron HCl (Zofran) 4 mg Q4HP PRN IV 02/13/24 18:00 Morphine Sulfate 2 mg Q4HPRN PRN IV 02/13/24 18:00 Chlordiazepoxide HCl (Librium Capsule) 25 mg DAILY PO 02/14/24 10:00 02/14/24 10:22 25 MG Thiamine HCl 100 mg DAILY PO 02/14/24 10:00 02/14/24 10:22 100 MG Folic Acid 1 mg DAILY PO 02/14/24 10:00 02/14/24 10:22 1 MG Multivitamins (Mvi Tab) 1 tab DAILY PO 02/14/24 10:00 02/14/24 10:23 1 TAB Lorazepam (Ativan Inj) 1 mg Q4H IV 02/13/24 18:00 02/14/24 15:27 1 MG Lorazepam (Ativan Inj) 1 mg Q6H IV 02/13/24 18:00 Hold Metronidazole 100 ml @ 100 mls/hr Q6HR IV 02/13/24 18:15 02/14/24 15:27 100 MLS/HR Review of systems: 12 point review of systems as per HPI Objective: Vital Signs Date Time Temp Pulse Resp B/P (MAP) Pulse Ox O2 Delivery O2 Flow Rate FiO2 02/14/24 13:00 97.8 114 18 117/77 (90) 92 97.8 02/14/24 09:56 Room Air* 0 21 Physical Exam General: Alert and oriented x4 no distress HEENT: Normocephalic atraumatic extraocular movements are intact, pupils equal round react light and accommodating, scleral icterus is present Heart: Regular rate and rhythm Lungs: Clear to auscultation bilaterally anteriorly Abdomen: Soft, moderately distended, no active bowel sounds, no masses or rebound tenderness Extremities: No clubbing cyanosis or edema Neuro: Moves all four extremity no asterixis Labs Test 02/14/24 17:01 02/14/24 05:18 02/13/24 18:53 02/13/24 11:10 Range/Units POC Glucose 113 H 70-106 mg/dl White Blood Count 6.7 4.4-10.8 10^3/uL Red Blood Count 3.65 L 4.5-5.90 10^6/uL Hemoglobin 12.2 L 13.5-17.5 g/dL Hematocrit 36.1 L 41.0-53.0 % Mean Corpuscular Volume 98.8 80.0-100.0 fL Mean Corpuscular Hemoglobin 33.5 H 28.0-32.0 pg Mean Corpuscular Hemoglobin Concent 33.9 32.0-36.0 g/dL Red Cell Distribution Width 18.3 H 11.8-14.3 % Platelet Count 138 L 140-450 10^3/uL Mean Platelet Volume 9.2 6.9-10.8 fL Neutrophils (%) (Auto) 75.6 37.0-80.0 % Lymphocytes (%) (Auto) 14.8 10.0-50.0 % Monocytes (%) (Auto) 8.3 0.0-12.0 % Eosinophils (%) (Auto) 0.4 0.0-7.0 % Basophils (%) (Auto) 0.9 0.0-2.0 % Neutrophils # (Auto) 5.1 1.6-8.6 10 ^3/uL Lymphocytes # (Auto) 1.0 0.4-5.4 10 ^3/uL Monocytes # (Auto) 0.6 0-1.3 10 ^3/uL Eosinophils # (Auto) 0 0-0.8 10 ^3/uL Basophils # (Auto) 0.1 0-0.2 10 ^3/uL Nucleated Red Blood Cells 0.1 % Sodium Level 130 L 136-145 mmol/L Potassium Level 3.6 3.5-5.1 mmol/L Chloride Level 98 98-107 mmol/L Carbon Dioxide Level 21 20-31 mmol/L Anion Gap 11 5-15 Blood Urea Nitrogen 10 9-23 mg/dL Creatinine 0.65 L 0.700-1.30 mg/dL Glomerular Filtration Rate Calc 117 >90 mL/min BUN/Creatinine Ratio 15.4 10.0-20.0 Serum Glucose 95 74-106 mg/dL Calcium Level 8.2 L 8.7-10.4 mg/dL Ammonia 40 H 11-32 umol/L Lactic Acid Level 1.9 0.4-2.0 mmol/L Test 02/13/24 09:11 02/13/24 07:27 Range/Units Total Bilirubin 16.2 H 0.2-1.0 mg/dL Aspartate Amino Transferase (AST) 150 H 13-40 U/L Alanine Aminotransferase (ALT) 46 H 7-40 U/L Alkaline Phosphatase 165 H 46-116 U/L Total Protein 7.9 5.7-8.2 g/dL Albumin 3.2 3.2-4.8 g/dL Lipase 261 H 12-53 U/L Plasma/Serum Blood Alcohol < 3.0 <10 mg/dL Urine Color Dark-orange Yellow Urine Clarity Turbid H Clear Urine pH 6.0 5.0-9.0 Urine Specific [place] 1.025 1.001-1.035 Urine Protein 1+ H Negative Urine Ketones Negative Negative Urine Blood Trace H Negative /uL Urine Nitrite Negative Negative Urine Bilirubin 4+ Negative Urine Urobilinogen 6 Negative mg/dL Urine Leukocyte Esterase Negative Negative /uL Urine RBC <1 0 - 3 /hpf Urine WBC 6 0 - 3 /hpf Urine Squamous Epithelial Cells Few <5 /hpf Urine Bacteria None seen None Seen /hpf Urine Mucus Few None Seen Urine Glucose Trace Normal mg/dL Imaging: IMPRESSION: 1. Small amount of ascites around the liver right pericolic gutter and pelvis. 2. Patient is status post cholecystectomy. 3. There are no dilated intrahepatic ducts. All CT scans at this medical facility are performed using dose modulation techniques as appropriate to a performed exam including the following: Automated exposure control was utilized; adjustment of the MA and/or KV according to patient size; and use of iterative reconstruction technique. Assessment: 1. Alcoholic hepatitis 2. Jaundice 3. Anemia 4. Thrombocytopenia 5. Elevated lipase 6. EtOH abuse Recommendations: 1. Check PT INR 2. Follow labs 3. EtOH counseling 4. Follow electrolytes and replace 6. Anti-reflux precautions 7. Continue anti withdrawal precautions 8. Continue vitamin supplementation TIMMY MONROE MD Feb 14, 2024 17:40
[2024-02-14 18:58] LABS: INR 1.43 (0.9-1.15); Prothrombin Time 14.8 sec (9.3-11.8)
[2024-02-14 21:00] VITALS: BP 132/78; PULSE 122; RESP 19; TEMP 98.4; O2SAT 90
[2024-02-15] VITALS (7 sets, daily range): BP systolic 116–131; BP diastolic 64–82; PULSE 90–121; RESP 18–19; TEMP 98.2–98.8; O2SAT 93–100
--- NOTE | 2024-02-15 09:07 | ECG ---
[facility] Test Date: 2024-02-14 Test Time: 19:05:38 Pat Name: [facility] Department: Respiratoy Room: 0286T A Gender: M Asbestos Hazard Abatement Worker: natalie : 1975 Requested By: MIR JONES Order Number: [id number] Reading MD: Salina Blanchard Measurements Intervals [place] Rate: 123 P: 11 SD: 133 QRS: 65 QRSD: 107 T: 3 QT: 331 QTc: 474 Interpretive Statements Sinus tachycardia Electronically Signed On 02-16-2024 9:08:53 PST by Salina Blanchard Please click the below link to view image of tracing.
[2024-02-15] MEDS ORDERED: FUROSEMIDE 20 MG/2 ML VIAL IV ONE (09:30)
--- NOTE | 2024-02-15 11:43 | DVHPN2 ---
Reviewed: Care Plan, H&P, Labs, Medications, Previous Orders, Radiology Changes from previous H/P or p: No Changes Eyes: No Pain, No Vision change, No Conjunctivae inflammation, No Eyelid inflammation, No Other, No Redness ENT: No Ear pain, No Ear discharge, No Nose pain, No Nose discharge, No Nose congestion, No Mouth pain, No Mouth swelling, No Throat pain, No Throat swelling, No Other Cardiovascular: No Chest Pain, No Palpitations, No Orthopnea, No Paroxysmal Noc. Dyspnea, No Edema, No Lt Headedness, No Other Respiratory: No Cough, No Dry, No Shortness of breath, No SOB with excertion, No Wheezing, No Hemoptysis, No Pleuritic Pain, No Sputum, No Other Gastrointestinal: Nausea; No Vomiting; Abdominal Pain; No Diarrhea, No Constipation, No Melena, No Hematochezia, No Other Genitourinary: No Dysuria, No Frequency, No Incontinence, No Hematuria, No Retention, No Other Musculoskeletal: No other, No neck pain, No shoulder pain, No arm pain, No back pain, No hand pain, No leg pain, No foot pain Skin: No Rash, No Lesions, No Jaundice, No Bruising, No Other Objective Vitals Vital Signs Date Time Temp Pulse Resp B/P (MAP) Pulse Ox O2 Delivery O2 Flow Rate FiO2 02/15/24 08:56 98.5 116 18 123/64 (83) 96 98.5 02/15/24 08:00 Room Air* 0 21 Intake/Output Intake and Output 02/15/24 07:00 Intake Total 2500 ml Balance 2500 ml Intake Oral 2300 ml IV Total 200 ml # Voids 5 Medications Current Medications Medications Dose Ordered Sig/Mikhail Route Start Time Stop Time Status Last Admin Dose Admin Diagnostic Test (Pha) 1 strip IQ4HR 02/13/24 20:00 02/15/24 08:00 1 STRIP Insulin Human Regular IQ4HR SC 02/13/24 20:00 Dextrose 50 ml UD PRN IV 02/13/24 18:00 Pantoprazole Sodium 40 mg DAILY@0630 IV 02/14/24 06:30 02/15/24 06:08 40 MG Sodium Chloride 1,000 ml @ 60 mls/hr [id number] IV 02/13/24 18:00 02/13/24 19:10 60 MLS/HR Lorazepam 0.5 mg Q6HP PRN PO 02/13/24 18:00 Al Hydrox/Mg Hydrox/Simethicone 30 ml Q6HP PRN PO 02/13/24 18:00 Docusate Sodium 100 mg BIDPRN PRN PO 02/13/24 18:00 02/14/24 10:23 100 MG Temazepam 15 mg QHSP PRN PO 02/13/24 18:00 Acetaminophen/ Hydrocodone Bitart 1 tab Q4HP PRN PO 02/13/24 18:00 Ondansetron HCl 4 mg Q4HP PRN IV 02/13/24 18:00 Morphine Sulfate 2 mg Q4HPRN PRN IV 02/13/24 18:00 Chlordiazepoxide HCl 25 mg DAILY PO 02/14/24 10:00 02/15/24 10:25 25 MG Thiamine HCl 100 mg DAILY PO 02/14/24 10:00 02/15/24 10:25 100 MG Folic Acid 1 mg DAILY PO 02/14/24 10:00 02/15/24 10:25 1 MG Multivitamins 1 tab DAILY PO 02/14/24 10:00 02/15/24 10:25 1 TAB Lorazepam 1 mg Q4H IV 02/13/24 18:00 02/15/24 06:18 1 MG Lorazepam 1 mg Q6H IV 02/13/24 18:00 Hold Metronidazole 100 ml @ 100 mls/hr Q6HR IV 02/13/24 18:15 02/15/24 06:08 100 MLS/HR Laboratory Results Laboratory Tests 02/14/24 05:18 Coagulation Test 02/14/24 18:29 Prothrombin Time 14.8 sec (9.3-11.8) H Prothrombin Time INR 1.43 (0.9-1.15) H Urinalysis Test 02/13/24 07:27 Urine Color Dark-orange (Yellow) Urine Clarity Turbid (Clear) H Urine pH 6.0 (5.0-9.0) Urine Specific [place] 1.025 (1.001-1.035) Urine Protein 1+ (Negative) H Urine Ketones Negative (Negative) Urine Blood Trace /uL (Negative) H Urine Nitrite Negative (Negative) Urine Bilirubin 4+ (Negative) Urine Urobilinogen 6 mg/dL (Negative) Urine Leukocyte Esterase Negative /uL (Negative) Urine RBC <1 /hpf (0 - 3) Urine WBC 6 /hpf (0 - 3) Urine Squamous Epithelial Cells Few /hpf (<5) Urine Bacteria None seen /hpf (None Seen) Urine Mucus Few (None Seen) Urine Glucose Trace mg/dL (Normal) Labs and/or images reviewed: Labs reviewed by me, Image(s) reviewed by me Assessment/Plan Assessment/Plan Acute generalized weakness Hyponatremia sodium 127 Acute lactic acidosis lactic acid 2.3 Jaundice bilirubin 16.2, consult for GI Dr. Erlin Wang Elevated liver function tests Chronic current alcohol abuse: Counseling thiamine folic acid multivitamin Alcohol withdrawal: Librium Time spent 40 minutes Plan discussed with: Patient My Orders Orders - MIR JNOES MD Procedure Category Date Status Time * Gi Dvh Certified Respiratory Therapist CONS 02/14/24 Transmitted 13:38 Lactulose Oral PHA 02/15/24 Transmitted 11:45 Date of Service: Feb 15, 2024 Billing Provider: MIR JONES MD Common Visit Codes: [id number] INP/OBS CARE(HIGH) MIR JONES MD Feb 15, 2024 11:43
[2024-02-15] MEDS: LACTULOSE 20Gm/30ML SOLN PO ONE (12:14)
--- NOTE | 2024-02-15 23:02 | DVHPN2 ---
Progress Note - Dictate Date Seen: Feb 15, 2024 Medical Necessity Reason Pt with a Central, PICC or Fol: No Subjective c/o SOB and abd pain, no GIB vital signs Vital Sign Date Time Temp Pulse Resp B/P (MAP) Pulse Ox O2 Delivery O2 Flow Rate FiO2 02/15/24 21:00 98.2 115 18 116/72 (87) 95 98.2 02/15/24 20:00 Room Air* 0 21 Total Intake and Output 02/14/24 02/14/24 02/15/24 15:00 23:00 07:00 Intake Total 100 ml 1600 ml 800 ml Balance 100 ml 1600 ml 800 ml medications Current Medications Medications Dose Ordered Sig/Mikhail Route Start Time Stop Time Status Last Admin Dose Admin Diagnostic Test (Pha) 1 strip IQ4HR 02/13/24 20:00 02/15/24 20:08 1 STRIP Insulin Human Regular IQ4HR SC 02/13/24 20:00 Dextrose 50 ml UD PRN IV 02/13/24 18:00 Pantoprazole Sodium 40 mg DAILY@0630 IV 02/14/24 06:30 02/15/24 06:08 40 MG Sodium Chloride 1,000 ml @ 60 mls/hr [id number] IV 02/13/24 18:00 02/15/24 19:03 60 MLS/HR Lorazepam 0.5 mg Q6HP PRN PO 02/13/24 18:00 Al Hydrox/Mg Hydrox/Simethicone 30 ml Q6HP PRN PO 02/13/24 18:00 Docusate Sodium 100 mg BIDPRN PRN PO 02/13/24 18:00 02/14/24 10:23 100 MG Temazepam 15 mg QHSP PRN PO 02/13/24 18:00 Acetaminophen/ Hydrocodone Bitart 1 tab Q4HP PRN PO 02/13/24 18:00 Ondansetron HCl 4 mg Q4HP PRN IV 02/13/24 18:00 Morphine Sulfate 2 mg Q4HPRN PRN IV 02/13/24 18:00 Chlordiazepoxide HCl 25 mg DAILY PO 02/14/24 10:00 02/15/24 10:25 25 MG Thiamine HCl 100 mg DAILY PO 02/14/24 10:00 02/15/24 10:25 100 MG Folic Acid 1 mg DAILY PO 02/14/24 10:00 12/1/24 10:25 1 MG Multivitamins 1 tab DAILY PO 02/14/24 10:00 02/15/24 10:25 1 TAB Lorazepam 1 mg Q4H IV 02/13/24 18:00 02/15/24 21:30 1 MG Lorazepam 1 mg Q6H IV 02/13/24 18:00 Hold Metronidazole 100 ml @ 100 mls/hr Q6HR IV 02/13/24 18:15 02/15/24 17:00 100 MLS/HR objective in mild resp distress CVS - S1S2+ Lungs - clear Abdomen - distended, tender, soft, BS+ laboratory and microbiology Laboratory Tests 02/14/24 05:18 Test 02/14/24 05:18 Range/Units Serum Glucose 95 74-106 mg/dL Assessment/Plan #Alcoholic hepatitis #Elevated liver enzymes #Abdominal pain #Acute resp failure #Thrombocytopenia, concerning for probable early cirrhosis -MOnitor liver enzymes. TB high, needs to downtrend prior to dc. Start prednisolone 40 mg qd for 28 days, if no evidence of infection -Strict alcohol abstinence rec. Discussed risks in detail, including cirrhosis -High protein diet -GI clinic f/u after dc -Care plan discussed with pt and family bedfside in detail Thank you for allowing me to participate in the care of this pt. Plan discussed with: Patient, Other SAMANTHA DEL REAL MD Feb 15, 2024 23:02
[2024-02-16 01:00] VITALS: BP 122/71; PULSE 118; RESP 20; TEMP 98.3; O2SAT 90
[2024-02-16 05:00] VITALS: BP 120/68; PULSE 121; RESP 24; TEMP 98.6; O2SAT 90
[2024-02-16 08:00] VITALS: PULSE 115; RESP 18; O2SAT 96
[2024-02-16 09:30] VITALS: BP 117/69; PULSE 115; RESP 18; TEMP 98.2; O2SAT 96
[2024-02-16 10:12] LABS: Hepatitis B Surface Antigen Negative (Negative)
[2024-02-16 10:33] LABS: Hepatitis C Antibody Negative (Negative)
[2024-02-16] MEDS ORDERED: PANT40T PO (12:30)
[2024-02-16] MEDS ORDERED: FOLI-119 PO (12:30)
[2024-02-16] MEDS ORDERED: THIA100T13 PO (12:30)
[2024-02-16] MEDS ORDERED: CHL25C PO (12:30)
--- NOTE | 2024-02-16 12:33 | DVHPN2 ---
Reviewed: Care Plan, H&P, Labs, Medications, Previous Orders, Radiology Changes from previous H/P or p: No Changes Eyes: No Pain, No Vision change, No Conjunctivae inflammation, No Eyelid inflammation, No Other, No Redness ENT: No Ear pain, No Ear discharge, No Nose pain, No Nose discharge, No Nose congestion, No Mouth pain, No Mouth swelling, No Throat pain, No Throat swelling, No Other Cardiovascular: No Chest Pain, No Palpitations, No Orthopnea, No Paroxysmal Noc. Dyspnea, No Edema, No Lt Headedness, No Other Respiratory: No Cough, No Dry, No Shortness of breath, No SOB with excertion, No Wheezing, No Hemoptysis, No Pleuritic Pain, No Sputum, No Other Gastrointestinal: Nausea; No Vomiting; Abdominal Pain; No Diarrhea, No Constipation, No Melena, No Hematochezia, No Other Genitourinary: No Dysuria, No Frequency, No Incontinence, No Hematuria, No Retention, No Other Musculoskeletal: No other, No neck pain, No shoulder pain, No arm pain, No back pain, No hand pain, No leg pain, No foot pain Skin: No Rash, No Lesions, No Jaundice, No Bruising, No Other Objective Vitals Vital Signs Date Time Temp Pulse Resp B/P (MAP) Pulse Ox O2 Delivery O2 Flow Rate FiO2 02/16/24 09:30 98.2 115 18 117/69 (85) 96 98.2 02/16/24 08:00 Room Air* 0 21 Intake/Output Intake and Output 02/16/24 07:00 Intake Total 1100 ml Output Total 400 ml Balance 700 ml Intake Oral 900 ml IV Total 200 ml Output Urine Total 400 ml # Voids 3 # Bowel Movements 3 Medications Current Medications Medications Dose Ordered Sig/Mikhail Route Start Time Stop Time Status Last Admin Dose Admin Diagnostic Test (Pha) 1 strip IQ4HR 02/13/24 20:00 02/16/24 11:53 1 STRIP Insulin Human Regular IQ4HR SC 02/13/24 20:00 Dextrose 50 ml UD PRN IV 02/13/24 18:00 Pantoprazole Sodium 40 mg DAILY@0630 IV 02/14/24 06:30 02/16/24 05:46 40 MG Sodium Chloride 1,000 ml @ 60 mls/hr [id number] IV 02/13/24 18:00 02/15/24 19:03 60 MLS/HR Lorazepam 0.5 mg Q6HP PRN PO 02/13/24 18:00 Al Hydrox/Mg Hydrox/Simethicone 30 ml Q6HP PRN PO 02/13/24 18:00 Docusate Sodium 100 mg BIDPRN PRN PO 02/13/24 18:00 02/14/24 10:23 100 MG Temazepam 15 mg QHSP PRN PO 02/13/24 18:00 Acetaminophen/ Hydrocodone Bitart 1 tab Q4HP PRN PO 02/13/24 18:00 Ondansetron HCl 4 mg Q4HP PRN IV 02/13/24 18:00 Morphine Sulfate 2 mg Q4HPRN PRN IV 02/13/24 18:00 Chlordiazepoxide HCl 25 mg DAILY PO 02/14/24 10:00 02/16/24 09:17 25 MG Thiamine HCl 100 mg DAILY PO 02/14/24 10:00 02/16/24 09:17 100 MG Folic Acid 1 mg DAILY PO 02/14/24 10:00 02/16/24 09:17 1 MG Multivitamins 1 tab DAILY PO 02/14/24 10:00 02/16/24 09:17 1 TAB Lorazepam 1 mg Q4H IV 02/13/24 18:00 02/15/24 21:30 1 MG Lorazepam 1 mg Q6H IV 02/13/24 18:00 Hold Metronidazole 100 ml @ 100 mls/hr Q6HR IV 02/13/24 18:15 02/16/24 11:16 100 MLS/HR Laboratory Results Laboratory Tests 02/14/24 05:18 Urinalysis Test 02/13/24 07:27 Urine Color Dark-orange (Yellow) Urine Clarity Turbid (Clear) H Urine pH 6.0 (5.0-9.0) Urine Specific [place] 1.025 (1.001-1.035) Urine Protein 1+ (Negative) H Urine Ketones Negative (Negative) Urine Blood Trace /uL (Negative) H Urine Nitrite Negative (Negative) Urine Bilirubin 4+ (Negative) Urine Urobilinogen 6 mg/dL (Negative) Urine Leukocyte Esterase Negative /uL (Negative) Urine RBC <1 /hpf (0 - 3) Urine WBC 6 /hpf (0 - 3) Urine Squamous Epithelial Cells Few /hpf (<5) Urine Bacteria None seen /hpf (None Seen) Urine Mucus Few (None Seen) Urine Glucose Trace mg/dL (Normal) Labs and/or images reviewed: Labs reviewed by me, Image(s) reviewed by me Assessment/Plan Assessment/Plan Acute generalized weakness Hyponatremia sodium 127 resolved Acute lactic acidosis lactic acid 2.3 Jaundice bilirubin 16.2, consult for GI Dr. Erlin Wang appreciated Elevated liver function tests Chronic current alcohol abuse: Counseling thiamine folic acid multivitamin Alcohol withdrawal: Librium Mother at the bedside and advised to follow up with GI Dr. Hoang Lara as an outpatient Plan discussed with: Patient Date of Service: Feb 16, 2024 Billing Provider: MIR JONES MD Common Visit Codes: [id number] INP/OBS CARE(HIGH) MIR JONES MD Feb 16, 2024 12:33
--- NOTE | 2024-02-16 12:42 | DVHDS2 ---
Discharge Summary Date of Admission Feb 13, 2024 at 17:48 Date of Discharge: Feb 16, 2024 Admitting Diagnosis Altered mental status and confusion Wounds: None Labs/Diagnostic Data: Laboratory Results Test 02/16/24 11:48 02/14/24 18:29 02/14/24 05:18 02/13/24 18:53 POC Glucose 117 mg/dl (70-106) Prothrombin Time 14.8 sec (9.3-11.8) Prothrombin Time INR 1.43 (0.9-1.15) White Blood Count 6.7 10^3/uL (4.4-10.8) Red Blood Count 3.65 10^6/uL (4.5-5.90) Hemoglobin 12.2 g/dL (13.5-17.5) Hematocrit 36.1 % (41.0-53.0) Mean Corpuscular Volume 98.8 fL (80.0-100.0) Mean Corpuscular Hemoglobin 33.5 pg (28.0-32.0) Mean Corpuscular Hemoglobin Concent 33.9 g/dL (32.0-36.0) Red Cell Distribution Width 18.3 % (11.8-14.3) Platelet Count 138 10^3/uL (140-450) Mean Platelet Volume 9.2 fL (6.9-10.8) Neutrophils (%) (Auto) 75.6 % (37.0-80.0) Lymphocytes (%) (Auto) 14.8 % (10.0-50.0) Monocytes (%) (Auto) 8.3 % (0.0-12.0) Eosinophils (%) (Auto) 0.4 % (0.0-7.0) Basophils (%) (Auto) 0.9 % (0.0-2.0) Neutrophils # (Auto) 5.1 10 ^3/uL (1.6-8.6) Lymphocytes # (Auto) 1.0 10 ^3/uL (0.4-5.4) Monocytes # (Auto) 0.6 10 ^3/uL (0-1.3) Eosinophils # (Auto) 0 10 ^3/uL (0-0.8) Basophils # (Auto) 0.1 10 ^3/uL (0-0.2) Nucleated Red Blood Cells 0.1 % Sodium Level 130 mmol/L (136-145) Potassium Level 3.6 mmol/L (3.5-5.1) Chloride Level 98 mmol/L (98-107) Carbon Dioxide Level 21 mmol/L (20-31) Anion Gap 11 (5-15) Blood Urea Nitrogen 10 mg/dL (9-23) Creatinine 0.65 mg/dL (0.700-1.30) Glomerular Filtration Rate Calc 117 mL/min (>90) BUN/Creatinine Ratio 15.4 (10.0-20.0) Serum Glucose 95 mg/dL (74-106) Calcium Level 8.2 mg/dL (8.7-10.4) Hepatitis B Surface Antigen Negative (Negative) Hepatitis C Antibody Negative (Negative) Ammonia 40 umol/L (11-32) Test 02/13/24 11:10 02/13/24 09:11 02/13/24 07:27 Lactic Acid Level 1.9 mmol/L (0.4-2.0) Total Bilirubin 16.2 mg/dL (0.2-1.0) Aspartate Amino Transferase (AST) 150 U/L (13-40) Alanine Aminotransferase (ALT) 46 U/L (7-40) Alkaline Phosphatase 165 U/L (46-116) Total Protein 7.9 g/dL (5.7-8.2) Albumin 3.2 g/dL (3.2-4.8) Lipase 261 U/L (12-53) Plasma/Serum Blood Alcohol < 3.0 mg/dL (<10) Urine Color Dark-orange (Yellow) Urine Clarity Turbid (Clear) Urine pH 6.0 (5.0-9.0) Urine Specific Pfeifer 1.025 (1.001-1.035) Urine Protein 1+ (Negative) Urine Ketones Negative (Negative) Urine Blood Trace /uL (Negative) Urine Nitrite Negative (Negative) Urine Bilirubin 4+ (Negative) Urine Urobilinogen 6 mg/dL (Negative) Urine Leukocyte Esterase Negative /uL (Negative) Urine RBC <1 /hpf (0 - 3) Urine WBC 6 /hpf (0 - 3) Urine Squamous Epithelial Cells Few /hpf (<5) Urine Bacteria None seen /hpf (None Seen) Urine Mucus Few (None Seen) Urine Glucose Trace mg/dL (Normal) Other Laboratory Tests 02/14/24 05:18 Brief Hx & Hospital Course: Male with a history of chronic alcohol abuse came in and admitted for acute generalized weakness found to have sodium of 127 which has resolved after IV fluids also had lactic acidosis is bilirubin was high 16.2 consistent with a chronic alcohol abuse patient also had elevated liver function tests patient was given thiamine folic acid and multivitamin tablets and also Librium for alcohol withdrawal. Seen by GI Dr. Erlin kat. At the time of discharge patient is alert awake oriented x3 stable vital signs mother at the bedside. Discharged home on thiamine folic acid multivitamin and pantoprazole he will follow up with GI Dr. Hoang Lara in one week for possible endoscopy (she is on vacation till 02-21-24) Consults/Reason for consult GI Dr. Erlin Kat Operations or Procedures CT abdomen pelvis without contrast Condition at Discharge: Poor Final Diagnosis/Problems List Acute generalized weakness Hyponatremia sodium 127 resolved Acute lactic acidosis lactic acid 2.3 Jaundice bilirubin 16.2, consult for GI Dr. Erlin Kat appreciated Elevated liver function tests Chronic current alcohol abuse: Counseling thiamine folic acid multivitamin Alcohol withdrawal: Librium ESRD ,not on hemodialysis nephrology consult appreciated History of renal transplant recipient: Continue home medication tacrolimus Hypertension History of aortic stenosis Acute on chronic CHF exacerbation X-ray negative CT head negative Discharge Disposition: Home Discharge Instruct/Medications Diet: Regular Activity: Light activity Follow Up/Referral: Stop Drinking alcohol Use medications as prescribed Follow up with the GI Dr. Hoang Lara in one week possible endoscopy Medications: Thiamine Folic acid Librium Pantoprazole Transmitted to [facility] 39 (Time Taken for discharge summary 39 minutes) Discharge Statement: "Patient was advised to return to the ER or call 911 if any headaches, dizziness, shortness of breath, chest pain, abdominal pain, bleeding, fevers, or worsening of medical condition. Patient was counseled about treatment plan, medications, possible side effects, patientverbalized understanding. All questions were answered to the best of my ability. This discharge took greater then 30 minutes in planning, reviewing documentation, counseling the patient, and discussing with other team members." ASSESSMENT ASSESSMENT Assessment Acute generalized weakness Hyponatremia sodium 127 resolved Acute lactic acidosis lactic acid 2.3 Jaundice bilirubin 16.2, consult for GI Dr. Erlin Kat appreciated Elevated liver function tests Chronic current alcohol abuse: Counseling thiamine folic acid multivitamin Alcohol withdrawal: Librium ESRD ,not on hemodialysis nephrology consult appreciated History of renal transplant recipient: Continue home medication tacrolimus Hypertension History of aortic stenosis Acute on chronic CHF exacerbation X-ray negative CT head negative Date of Service: Feb 16, 2024 Billing Provider: MIR JONES MD Common Visit Codes: 18391-JWY/OBS DISCH DAY >30min MIR JONES MD Feb 16, 2024 12:42
[2024-02-16 12:54] VITALS: BP 115/80; PULSE 115; RESP 19; TEMP 36.8; O2SAT 96
[2024-02-16 13:00] VITALS: BP 118/68; PULSE 112; RESP 18; TEMP 98.6; O2SAT 96
[2024-02-16] MEDS: LORazepam 0.5 MG TAB PO PRN (13:38)
== END 2024-02-16 15:24 | disposition home or self-care (01) | DRG 282 ==
LOC: ER 07:08 → OVERFLOW 17:48 → WEST WING 22:54 → TELE-WESTW 02-14 20:12
PROVIDERS: ADMIT Hospitalist; ATTEND Family Medicine
DX: K85.90 Acute pancreatitis without necrosis or infection, unspecified (principal); D69.6 Thrombocytopenia, unspecified; E87.21 Acute metabolic acidosis; K83.09 Other cholangitis; N18.6 End stage renal disease; K70.10 Alcoholic hepatitis without ascites; E87.1 Hypo-osmolality and hyponatremia; K81.9 Cholecystitis, unspecified; F10.139 Alcohol abuse with withdrawal, unspecified; D64.9 Anemia, unspecified; K52.9 Noninfective gastroenteritis and colitis, unspecified; E66.9 Obesity, unspecified; Z90.49 Acquired absence of other specified parts of digestive tract; Z94.0 Kidney transplant status; Y90.9 Presence of alcohol in blood, level not specified; Z68.35 Body mass index [BMI] 35.0-35.9, adult
CPT/HCPCS: 36415; 71046; 74177; 80048; 80053; 80320; 81001; 82140; 82962; 83605; 83690; 85025; 85610; 86803; 87340; 93005; G0378; J1815; J2405; J2470; J3490

== ENCOUNTER 2024-03-01 20:44 | Emergency (ER) | payer MEDICAID ==
[~2024-03-01] VITALS: Ht 167.6 cm; Wt 100.0 kg
[~2024-03-01 20:44] MED LIST: CHL25C PO; FOLI-119 PO; PANT40T PO; THIA100T13 PO
--- NOTE | 2024-03-01 21:16 | ED.PDOC ---
SOB-HPI HPI Comments 48-year-old male with PMHx Cirrhosis presents with a chief complaint of SOB, cough, and fever. Patient states that he was recently released a few weeks ago from [facility] and was diagnosed with liver cirrhosis. Patient mentions that was the last time he has had a paracentesis. Patient was sating at 92% on room air according to EMS and was placed on 2L via NC and is now between 94-96%. Patient is unsure if he has been diagnosed with CHF. No other symptoms or modifying factors present at this time. Chief Complaint: Shortness of Breath Time Seen by MD: 20:53 Primary Care Provider: LAURITA Rivera notes: Medications, Allergies Information Source: Patient, Emergency Med Personnel Mode of Arrival: EMS Severity: Moderate Timing: Hours Duration: Since onset Context: At Rest PE Risk Factors: None History of: Other (Cirrhosis; Possible CHF) Prehospital treatment: Oxygen (2L via NC) Associated Signs and Symptoms: Fever, Cough If cough with SOB: Non-Productive Past Medical History PAST MEDICAL HISTORY: Liver Surgical History: Cholecystectomy Family History Family History: No family hx of DM Social History Smoker: Non-Smoker Alcohol: Heavy Drugs: Denies Drug Use Lives In: Home Constitutional: reports: fever; denies: chills, diaphoresis, fatigue, malaise, sweats, weakness, others EENTM: denies: blurred vision, double vision, ear bleeding, ear discharge, ear drainage, ear pain, ear ringing, eye pain, eye redness, hearing loss, mouth pain, mouth swelling, nasal discharge, nose bleeding, nose congestion, nose pain, photophobia, tearing, throat pain, throat swelling, voice changes, others Respiratory: reports: cough, shortness of breath; denies: hemoptysis, orthopnea, SOB at rest, SOB with excertion, stridor, wheezing, others Cardiovascular: denies: chest pain, dizzy spells, diaphoresis, Dyspnea on exertion, edema, irregular heart beat, left arm pain, lightheadedness, palpitations, PND, syncope, others Gastrointestinal: denies: abdomen distended, abdominal pain, blood streaked bowels, constipated, diarrhea, dysphagia, difficulty swallowing, hematemesis, melena, nausea, poor appetite, poor fluid intake, rectal bleeding, rectal pain, vomiting, others Genitourinary: denies: burning, dysuria, flank pain, frequency, hematuria, incontinence, penile discharge, penile sore, pain, testicle pain, testicle swelling, urgency, others Neurological: denies: dizziness, fainting, headache, left sided numbness, left sided weakness, numbness, paresthesia, pre-existing deficit, right sided numbness, right sided weakness, seizure, speech problems, tingling, tremors, weakness, others Musculoskeletal: denies: back pain, gout, joint pain, joint swelling, muscle pain, muscle stiffness, neck pain, others Integumetry: denies: bruises, change in color, change in hair/nails, dryness, laceration, lesions, lumps, rash, wounds, others Allergic/Immunocompromised: denies: Difficulty Healing, Frequent Infections, Hives, Itching, others Hematologic/Lymphatic: denies: anemia, blood clots, easy bleeding, easy bruising, swollen glands, others Endocrine: denies: excessive hunger, excessive sweating, excessive thirst, excessive urination, flushing, intolerance to cold, intolerance to heat, unexplained weight gain, unexplained weight loss, others Psychiatric: denies: anxiety, bipolar disorder, depression, hopeless, panic disorder, schizophrenia, sleepless, suicidal, others All Other Systems: Reviewed and Negative Physical Exam General Appearance: Mild Distress, Normal HEENT: Normal ENT Inspection, Pharynx Normal, TMs Normal Neck: Full Range of Motion, Non-Tender, Normal, Normal Inspection Respiratory: Chest Non-Tender, Lungs Clear, No Accessory Muscle Use, No Respiratory Distress, Normal Breath Sounds Cardiovascular: No Edema, No JVD, No Murmur, No Gallop, Normal Peripheral Pulses, Regular Rate/Rhythm Breast Exam: Deferred Gastrointestinal: No Organomegaly, Non Tender, No Pulsatile Mass, Normal Bowel Sounds, Soft Genitalia: Deferred Pelvic: Deferred Rectal: Deferred Extremities: No calf tenderness, Normal capillary refill, Normal inspection, Normal range of motion, Non-tender, No pedal edema Musculoskeletal : Apperance: Normal Neurologic: Alert, pneumatic press hand II-XII nml as Tested, No Motor Deficits, Normal Affect, Normal Mood, No Sensory Deficits Cerebellar Function: Normal Reflexes: Normal Skin: Dry, Normal Color, Warm Lymphatic: No Adenopathy EKG EKG : Pulse Rate (adult): 111 [place]: Normal Cardiac Rhythm: ST Block: None Hypertrophy: None ST: Normal Was a procedure done? Was a procedure done?: No Differential Dx Differential Diagnosis: CHF, COPD, URI X-Ray, Labs, Meds, VS Vital Signs Date Time Temp Pulse Resp B/P (MAP) Pulse Ox O2 Delivery O2 Flow Rate FiO2 03/02/24 05:21 99.1 92 18 117/65 (82) 98 99.1 03/02/24 05:21 92 19 98 Room Air* 0 21 03/01/24 21:19 111 03/01/24 21:15 111 03/01/24 20:55 99.7 112 16 127/70 (89) 94 Lab Test 03/02/24 00:07 03/01/24 21:28 03/01/24 21:00 Range/Units Troponin I High Sensitivity < 3 L < 3 L </=54 ng/L White Blood Count 21.3 H 4.4-10.8 10^3/uL Red Blood Count 3.90 L 4.5-5.90 10^6/uL Hemoglobin 13.1 L 13.5-17.5 g/dL Hematocrit 39.2 L 41.0-53.0 % Mean Corpuscular Volume 100.6 H 80.0-100.0 fL Mean Corpuscular Hemoglobin 33.7 H 28.0-32.0 pg Mean Corpuscular Hemoglobin Concent 33.5 32.0-36.0 g/dL Red Cell Distribution Width 20.3 H 11.8-14.3 % Platelet Count 128 L 140-450 10^3/uL Mean Platelet Volume 9.6 6.9-10.8 fL Neutrophils (%) (Auto) 72.8 37.0-80.0 % Lymphocytes (%) (Auto) 17.7 10.0-50.0 % Monocytes (%) (Auto) 9.2 0.0-12.0 % Eosinophils (%) (Auto) 0.0 0.0-7.0 % Basophils (%) (Auto) 0.3 0.0-2.0 % Neutrophils # (Auto) 15.5 H 1.6-8.6 10 ^3/uL Lymphocytes # (Auto) 3.8 0.4-5.4 10 ^3/uL Monocytes # (Auto) 2.0 H 0-1.3 10 ^3/uL Eosinophils # (Auto) 0 0-0.8 10 ^3/uL Basophils # (Auto) 0.1 0-0.2 10 ^3/uL Nucleated Red Blood Cells 0.0 % Prothrombin Time 17.5 H 9.3-11.8 sec Prothrombin Time INR 1.72 H 0.9-1.15 Activated Partial Thromboplast Time 33.3 24.5-34.5 SEC Sodium Level 128 L 136-145 mmol/L Potassium Level 5.4 H 3.5-5.1 mmol/L Chloride Level 98 98-107 mmol/L Carbon Dioxide Level 20 20-31 mmol/L Anion Gap 10 5-15 Blood Urea Nitrogen 39 H 9-23 mg/dL Creatinine 1.45 H 0.700-1.30 mg/dL Glomerular Filtration Rate Calc 60 >90 mL/min BUN/Creatinine Ratio 26.9 H 10.0-20.0 Serum Glucose 166 H 74-106 mg/dL Calcium Level 9.0 8.7-10.4 mg/dL Total Bilirubin 31.3 H 0.2-1.0 mg/dL Aspartate Amino Transferase (AST) 327 H 13-40 U/L Alanine Aminotransferase (ALT) 248 H 7-40 U/L Alkaline Phosphatase 159 H 46-116 U/L Ammonia 40 H 11-32 umol/L B-Type Natriuretic Peptide 68.40 0-100 pg/mL Total Protein 7.6 5.7-8.2 g/dL Albumin 2.9 L 3.2-4.8 g/dL Plasma/Serum Blood Alcohol 3.8 <10 mg/dL Urine Color Dark-yellow Yellow Urine Clarity Turbid H Clear Urine pH 5.0 5.0-9.0 Urine Specific Sharon 1.016 1.001-1.035 Urine Protein Negative Negative Urine Ketones Negative Negative Urine Blood Negative Negative /uL Urine Nitrite Negative Negative Urine Bilirubin 4+ Negative Urine Urobilinogen Normal Negative mg/dL Urine Leukocyte Esterase Negative Negative /uL Urine RBC <1 0 - 3 /hpf Urine WBC 1 0 - 3 /hpf Urine Squamous Epithelial Cells Few <5 /hpf Urine Amorphous Crystals Few None Seen /hpf Urine Bacteria Few H None Seen /hpf Urine Mucus Few None Seen Urine Glucose Normal Normal mg/dL Urine Opiates Screen Neg NEGATIVE Urine Fentanyl Screen Neg NEGATIVE Urine Barbiturates Screen Neg NEGATIVE Urine Phencyclidine Screen Neg NEGATIVE Urine Amphetamines Screen Neg NEGATIVE Urine Benzodiazepines Screen Pos NEGATIVE Urine Cocaine Screen Neg NEGATIVE Urine Cannabinoids Screen Neg NEGATIVE PATIENT: LESA [facility] MACCT: [id number]: [id number] : 1975 LOC: ER ROOM / BED: / AGE / SEX: 48 / M ADM STATUS: REG ER SERVICE 06 ORDERING PHYSICIAN: SULMA YANG MD PROCEDURE(s): CXR2 - CHEST TWO VIEWS ROUTINE REASON: sob ORDER NUMBER(s): [id number], ACCESSION NUMBER(s): [id number] CHEST RADIOGRAPH Indication: sob Technique: Frontal and lateral view of the chest was obtained Comparison: XY CHEST TWO VIEWS ROUTINE on DOS: 02/13/24 FINDINGS: Lines and Tubes: None Lungs: Clear Pleura: No effusion. No pneumothorax. Cardiomediastinal contours: Unremarkable Bones: Unremarkable IMPRESSION: No evidence of acute disease. ATED BY: YURIDIA ARCEO DO DICTATED DATE/TIME: 03/01/242204 SIGNED BY: YURIDIA ARCEO DO SIGNED DATE/TIME: 03/01/242204 [place] [address] Ph: [phone] DIAGNOSTIC IMAGING Diagnostic Imaging Report : [id number] Signed PATIENT: L[facility]A [facility] ACCT: [id number] UNIT: [id number] : 1975 LOC: ER ROOM / BED: / AGE / SEX: 48 / M ADM STATUS: REG ER SERVICE 1 ORDERING PHYSICIAN: SULMA YANG MD PROCEDURE(s): ABPL - CT AB PEL WO CON-NO ORAL OR IV REASON: abd pain ORDER NUMBER(s): [id number], ACCESSION NUMBER(s): [id number] Examination: ABPL CLINICAL INDICATION: ;abd pain DIREAS;Reason for Exam: Ambulatory;Ambulatory;Modes of Transportation DITRANS;How is patient transported? COMPARISON: None. CONTRAST USED: None. TECHNIQUE: A plain CT study of the abdomen and pelvis is performed. The examination was performed with [address] scan was done according to ALARA (As Low as Reasonably Achievable) principle. Multiplanar reconstructions were obtained. FINDINGS: CT ABDOMEN: Lung Base: Subtle atelectasis is noted in the basal segments of the bilateral lower lobes of the lung. Unenhanced Liver: Moderate hepatomegaly is noted with fatty infiltration. Unenhanced Spleen: Borderline splenomegaly is noted. No focal abnormality is seen. Gallbladder: Post cholecystectomy status is noted. The common bile duct is not dilated. Unenhanced Pancreas: The pancreas appears normal in size and shape. No focal lesions are seen. The peripancreatic fat planes are unremarkable. Retroperitoneum: Both adrenal glands are normal in size and morphology. No significant retroperitoneal lymphadenopathy is noted. Kidneys: The kidneys are normal in size with no evidence of hydronephrosis or renal calculi. Stomach and Bowel: Mild colonic diverticulosis is noted without evidence of diverticulitis. There is mild ascites in the abdomen. Skeletal System: The thoracolumbar spine is unremarkable. Vessels: Aorta, IVC, and mesenteric vessels cannot be commented on in this unenhanced CT scan. CT PELVIS Appendix: The appendix appears normal. Colon: Mild colonic diverticulosis is noted without evidence of diverticulitis. Bladder: The urinary bladder appears unremarkable. Pelvic Organs: The prostate is normal in size and morphology. No adnexal mass is noted. Lymph Nodes and Fluid: No pelvic lymphadenopathy is identified. No abnormal pelvic fluid collection is seen. IMPRESSION: 1. Moderate hepatomegaly with fatty infiltration of the liver. 2. Borderline splenomegaly. 3. Mild ascites noted. 4. Subtle atelectasis in the basal segments of the bilateral lower lobes. 5. Post cholecystectomy status. 6. Mild colonic diverticulosis without diverticulitis. 7. Normal appendix and prostate. 8. No evidence of renal calculi or hydronephrosis. 9. Recommendation: Correlation with liver function tests (LFTs) is recommended for the fatty liver findings. Follow-up imaging may be considered for further evaluation of mild ascites. Electronically Signed 03/02/2024 03:46 Osmel Starr ATED BY: COLTON LI MD DICTATED DATE/TIME: 03/02/24345 SIGNED BY: COLTON LI MD SIGNED DATE/TIME: 03/02/24345 CC: [place] [address]. First troponin is three. Second troponin is three. EKG shows no signs of ischemia Platelet 128. The patient has a appointment see a liver specialist who was assigned by [facility]. At this hand is no pulmonary issues to address as his x-ray is negative. Time of 1ST Reevaluation: 21:23 Reevaluation 1ST: Unchanged Patient Education/Counseling: Diagnosis, Treatment, Prognosis Family Education/Counseling: No Family Present Departure 1 Departure Time of Disposition: 05:52 Impression: Primary Impression: Dyspnea Qualified Codes: R06.09 - Other forms of dyspnea Additional Impressions: Cirrhosis Qualified Codes: K70.30 - Alcoholic cirrhosis of liver without ascites Fatty liver Hepatosplenomegaly Diverticulosis Disposition: 01 HOME / SELF CARE / HOMELESS Condition: Stable Additional Instructions: Reassessed patient, vital signs stable. Denies any new symptoms. Patient is able to tolerate PO and ambulate/be mobile at their baseline without concern. Risks and benefits of all medications given or prescribed, if any, discussed. All lab work, imaging and diagnostic studies were reviewed by me. The patient was counseled extensively on my clinical impression, diagnosis, expected course of the disease, and plan, including their follow-up care. Will discharge patient. Patient instructed to follow up with Primary Care Physician within 24-48 hours. Strict return precautions given for further exacerbation of symptoms or for new symptoms. The patient was given the opportunity to ask questions and all questions were answered by myself and the nursing/tech staff. Patient is in agreement with the care plan. The patient verbally expressed understanding of the discharge instructions, including the reasons to return to the Emergency Department. Discharged With: Self Critical Care Note Critical Care Time?: Yes (45 min-critical care time only) Stability Stability form required: No Heart Score Heart Score: Heart Score Response (Comments) Value History N/A 0 EKG N/A 0 Age 45-64 1 Risk Factors No known risk factors 0 Troponin Normal limit 0 Total 1 I personally scribed for SULMA YANG MD ([email or web address]) on 03/01/24 at 21:16. Electronically submitted by Harjinder Mccabe ([email or web address]). I personally scribed for SULMA YANG MD ([email or web address]) on 03/01/24 at 21:19. Electronically submitted by Harjinder Mccabe ([email or web address]). I personally scribed for SULMA YANG MD ([email or web address]) on 03/02/24 at 01:20. Electronically submitted by Harjinder Mccabe ([email or web address]). SULMA YANG MD Mar 01, 2024 21:16
[2024-03-01 21:46] LABS: Basophils # (auto) 0.1 10 ^3/uL (0-0.2); Basophils % (auto) 0.3 % (0.0-2.0); Eosinophils # (auto) 0 10 ^3/uL (0-0.8); Hematocrit 39.2 % (41.0-53.0); Hemoglobin 13.1 g/dL (13.5-17.5); Lymphocytes # (auto) 3.8 10 ^3/uL (0.4-5.4); Lymphocytes % (auto) 17.7 % (10.0-50.0); Mean Corpuscular Hemoglobin 33.7 pg (28.0-32.0); Mean Corpuscular Hgb Conc. 33.5 g/dL (32.0-36.0); Mean Corpuscular Volume 100.6 fL (80.0-100.0); Monocytes % (auto) 9.2 % (0.0-12.0); Neutrophils # (auto) 15.5 10 ^3/uL (1.6-8.6); Neutrophils % (auto) 72.8 % (37.0-80.0); Platelet Count (auto) 128 10^3/uL (140-450); Red Cell Distribution Width 20.3 % (11.8-14.3); White Blood Cell 21.3 10^3/uL (4.4-10.8)
[2024-03-01 22:01] LABS: Blood Alcohol 3.8 mg/dL (<10)
[2024-03-01 22:06] LABS: INR 1.72 (0.9-1.15); Partial Thromboplastin Time 33.3 SEC (24.5-34.5); Prothrombin Time 17.5 sec (9.3-11.8)
--- NOTE | 2024-03-01 22:08 | DVH ---
CHEST RADIOGRAPH Indication: sob Technique: Frontal and lateral view of the chest was obtained Comparison: XY CHEST TWO VIEWS ROUTINE on DOS: 02/13/24 FINDINGS: Lines and Tubes: None Lungs: Clear Pleura: No effusion. No pneumothorax. Cardiomediastinal contours: Unremarkable Bones: Unremarkable IMPRESSION: No evidence of acute disease.
[2024-03-01 22:12] LABS: Alanine Aminotransferase 248 U/L (7-40); Alkaline Phosphatase 159 U/L (46-116); Anion Gap 10 (5-15); Aspartate Aminotransferase 327 U/L (13-40); BUN/Creatinine Ratio 26.9 (10.0-20.0); Bilirubin, Total 31.3 mg/dL (0.2-1.0); Blood Urea Nitrogen 39 mg/dL (9-23); Carbon Dioxide 20 mmol/L (20-31); Chloride 98 mmol/L (98-107); Glucose 166 mg/dL (74-106); Potassium 5.4 mmol/L (3.5-5.1); Sodium 128 mmol/L (136-145)
[2024-03-01 22:13] LABS: Albumin 2.9 g/dL (3.2-4.8); Total Protein 7.6 g/dL (5.7-8.2)
[2024-03-01 22:29] LABS: Urine Amorphous Crystal FEW /hpf (None Seen); Urine Bacteria FEW /hpf (None Seen); Urine Blood Negative /uL (Negative); Urine Clarity Turbid (Clear); Urine Color Dark-Yellow (Yellow); Urine Mucus FEW (None Seen); Urine Protein, UAD Negative (Negative); Urine Specific Gravity 1.016 (1.001-1.035); Urine Urobilinogen Normal (Negative); Urine WBC 1 /hpf (0 - 3)
[2024-03-01 22:38] LABS: Benzodiazephine Screen, Urine Pos (NEGATIVE)
[2024-03-01 22:39] LABS: Amphetamine Screen, Urine Neg (NEGATIVE); Barbiturate Scree,Urine Neg (NEGATIVE); Opiate Scree,Urine Neg (NEGATIVE); Phencyclidine Screen, Urine Neg (NEGATIVE)
[2024-03-01 22:40] LABS: Cannabinoid Screen, Urine Neg (NEGATIVE); Cocaine Screen, Urine Neg (NEGATIVE)
--- NOTE | 2024-03-02 02:46 | ECG ---
[facility] Test Date: 2024-03-01 Test Time: 21:15:56 Pat Name: [facility]A [facility] Department: ED Room: Gender: M Manager Paid: : 1975 Requested By: SULMA YANG Order Number: [id number] Reading MD: Raghav Turner Measurements Intervals Narvon Rate: 111 P: 24 DC: 111 QRS: 83 QRSD: 116 T: -13 QT: 365 QTc: 496 Interpretive Statements Sinus tachycardia Anterolateral infarct, old Electronically Signed On 03-05-2024 10:21:55 PST by Raghav Turner Please click the below link to view image of tracing.
--- NOTE | 2024-03-02 03:46 | DVH ---
Examination: ABPL CLINICAL INDICATION: ;abd pain DIREAS;Reason for Exam: Ambulatory;Ambulatory;Modes of Transportation DITRANS;How is patient transported? COMPARISON: None. CONTRAST USED: None. TECHNIQUE: A plain CT study of the abdomen and pelvis is performed. The examination was performed wit h [address] scan was done according to ALARA (As Low as Reasonably Achievable) principle. Multiplanar reconstructions were obtained. FINDINGS: CT ABDOMEN: Lung Base: Subtle atelectasis is noted in the basal segments of the bilateral lower lobes of the lung . Unenhanced Liver: Moderate hepatomegaly is noted with fatty infiltration. Unenhanced Spleen: Borderline splenomegaly is noted. No focal abnormality is seen. Gallbladder: Post cholecystectomy status is noted. The common bile duct is not dilated. Unenhanced Pancreas: The pancreas appears normal in size and shape. No focal lesions are seen. The pe ripancreatic fat planes are unremarkable. Retroperitoneum: Both adrenal glands are normal in size and morphology. No significant retroperitonea l lymphadenopathy is noted. Kidneys: The kidneys are normal in size with no evidence of hydronephrosis or renal calculi. Stomach and Bowel: Mild colonic diverticulosis is noted without evidence of diverticulitis. There is mild ascites in the abdomen. Skeletal System: The thoracolumbar spine is unremarkable. Vessels: Aorta, IVC, and mesenteric vessels cannot be commented on in this unenhanced CT scan. CT PELVIS Appendix: The appendix appears normal. Colon: Mild colonic diverticulosis is noted without evidence of diverticulitis. Bladder: The urinary bladder appears unremarkable. Pelvic Organs: The prostate is normal in size and morphology. No adnexal mass is noted. Lymph Nodes and Fluid: No pelvic lymphadenopathy is identified. No abnormal pelvic fluid collection i s seen. IMPRESSION: 1. Moderate hepatomegaly with fatty infiltration of the liver. 2. Borderline splenomegaly. 3. Mild ascites noted. 4. Subtle atelectasis in the basal segments of the bilateral lower lobes. 5. Post cholecystectomy status. 6. Mild colonic diverticulosis without diverticulitis. 7. Normal appendix and prostate. 8. No evidence of renal calculi or hydronephrosis. 9. Recommendation: Correlation with liver function tests (LFTs) is recommended for the fatty liver f indings. Follow-up imaging may be considered for further evaluation of mild ascites. Electronically Signed 03/02/2024 03:46 Osmel Starr
[2024-03-02 05:21] VITALS: BP 117/65; PULSE 92; RESP 19; TEMP 99.1; O2SAT 98
== END 2024-03-02 06:11 | disposition home or self-care (01) ==
LOC: EDBD 20:44 → ER 20:44 → EDUNIT# 20:44 → ER 03-02 06:11
DX: K57.30 Diverticulosis of large intestine without perforation or abscess without bleeding (principal); K74.60 Unspecified cirrhosis of liver; K76.0 Fatty (change of) liver, not elsewhere classified; R06.02 Shortness of breath; R16.2 Hepatomegaly with splenomegaly, not elsewhere classified; F10.90 Alcohol use, unspecified, uncomplicated; Z90.49 Acquired absence of other specified parts of digestive tract; Z79.899 Other long term (current) drug therapy; Y90.0 Blood alcohol level of less than 20 mg/100 ml
CPT/HCPCS: 36415; 71046; 74176; 80053; 80307; 80320; 81001; 82140; 83880; 84484; 85025; 85610; 85730; 93005